=== PATIENT | male | born 1955 | race Caucasian/White ===

== ENCOUNTER 2018-03-26 14:07 | Observation (INO) | payer BC, MEDICARE ==
[2018-03-26] MEDS ORDERED: Sodium Chloride 0.9% 10 ML Syringe FLUSH PRN (14:14)
[2018-03-26] MEDS ORDERED: Sodium Chloride 0.9% 2.5 ML Syringe FLUSH PRN (14:14)
--- NOTE | 2018-03-26 14:21 | EDM.PDOC ---
ED HPI GENERAL MEDICAL PROBLEM - General Chief Complaint: General Stated Complaint: WEAK Time Seen by Provider: 03/26/18 14:13 Source of Information: Reports: Patient History Limitations: Reports: No Limitations - History of Present Illness INITIAL COMMENTS - FREE TEXT/NARRATIVE: HISTORY AND PHYSICAL: History of present illness: Patient is a 63-year-old male who presents to the emergency room with concerns of generalized weakness. He states 2 weeks ago in [facility] he did have a left hip replacement. During this time it did require 3 transfusions due to anemia. He states he was discharged to home with anemia and was told to monitor his symptoms closely. He is in the [facility] for work. During his hospitalization he did have a CT scan and a colonoscopy without any definitive reason for his anemia. He denies any fever, chills, chest pain, shortness of breath or cough. Denies any abdominal pain, nausea, vomiting, diarrhea, constipation or dysuria. There is been no blood noted in his stools. No syncope events, but states he does feel near syncopal at times "its real easy to fall asleep, I'll put it that way". Review of systems: As per history of present illness and below otherwise all systems reviewed and negative. Past medical history: As per history of present illness and as reviewed below otherwise noncontributory. Surgical history: As per history of present illness and as reviewed below otherwise noncontributory. Social history: Patient is of [employer] and wears undergarments, but agreeable to physical examination. See social history for further information. Family history: As per history of present illness and as reviewed below otherwise noncontributory. Physical exam: General: Well-developed and well-nourished 63-year-old male. Alert and oriented. Nontoxic appearing and in no acute distress. HEENT: Atraumatic, normocephalic, pupils equal and reactive bilaterally, negative for conjunctival pallor or scleral icterus, mucous membranes moist, TMs normal bilaterally, throat clear, neck supple, nontender, trachea midline. No drooling or trismus noted. No meningeal signs. No hot potato voice noted. Lungs: Clear to auscultation, breath sounds equal bilaterally, chest nontender. Heart: S1S2, regular rate and rhythm without overt murmur Abdomen: Soft, nondistended, nontender. Negative for masses or hepatosplenomegaly. Negative for costovertebral tenderness. Pelvis: Stable nontender. Genitourinary: Deferred. Rectal: This was done with a network engineer administrator at the bedside. Patient is aware and agreeable. Negative Hemoccult stool. Good rectal tone. Skin: Pale appearing, intact, warm, dry. Incisions site WNL. No lesions or rashes noted. Extremities: Atraumatic, moves all per self. Incision of the right hip appears free of infection, well approximated, no warmth or tenderness. He is negative for cords or calf pain. Neurovascular unremarkable. Neuro: Awake, alert, oriented. Cranial nerves II through XII unremarkable. Cerebellum unremarkable. Motor and sensory unremarkable throughout. Exam nonfocal. Notes: Hemoglobin is low at 8.1. Patient does not recall what his hemoglobin was when he was discharged at [facility]. He is symptomatic and agreeable to staying overnight for observation. Dr. Yeh was consulted on this case and is agreeable to accepting this patient. 1555: Dr Javed here to evaluate patient. Diagnostics: CBC, CMP, UA, influenza, troponin, chest x-ray, EKG, Hemoccult stool, type and screen, crossmatch 2 units Therapeutics: IV fluid Impression: Symptomatic Anemia Plan: Observation admission with telemetry to [facility] Definitive disposition and diagnosis as appropriate pending reevaluation and review of above. Duration: Week(s): generalized Pain Score (Numeric/FACES): 6 - Related Data Allergies Allergy/AdvReac Type Severity Reaction Status Date / Time No Known Allergies Allergy Verified 03/26/18 14:25 Home Meds: Home Meds Diclofenac Sodium [Diclofenac Sodium ER] 100 mg PO BID 03/26/18 [History] Metoprolol Succinate [Toprol XL 50mg] 50 mg PO BID 03/26/18 [History] Pantoprazole [ProTONIX] 40 mg PO DAILY PRN 03/26/18 [History] oxyCODONE HCl/Acetaminophen [Oxycodone-Acetaminophen 5-325] 2 tab PO BID [History] ED ROS GENERAL - Review of Systems Review Of Systems: ROS reveals no pertinent complaints other than HPI. ED EXAM, GENERAL - Physical Exam Exam: See Below (See dictation) Course - Vital Signs Last Recorded V/S: Last Vital Signs Temp 97.6 F 03/26/18 14:21 Pulse 60 03/26/18 14:21 Resp 20 03/26/18 14:21 BP 133/82 03/26/18 14:21 Pulse Ox 100 03/26/18 14:21 - Orders/Labs/Meds Orders: Active Orders 24 hr Category Date Time Status Admission Status [Patient Status] [ADT] Stat ADT 03/26/18 15:49 Ordered Cardiac Monitoring [RC] . DIRECTED Care 03/26/18 15:49 Ordered EKG Documentation Completion [RC] STAT Care 03/26/18 14:14 Active Orthostatic Vital Signs [RC] ASDIRECTED Care 03/26/18 14:14 Active Verify Patient Consent Obtain [RC] ASDIRECTED Care 03/26/18 15:53 Ordered RED BLOOD CELLS LP [BBK] Stat Lab 03/26/18 15:53 Ordered TYPE AND SCREEN [BBK] Stat Lab 03/26/18 14:41 Received UA W/MICROSCOPIC [URIN] Stat Lab 03/26/18 14:33 Ordered Sodium Chloride 0.9% [Saline Flush] Med 03/26/18 14:14 Active 10 ml FLUSH ASDIRECTED PRN Sodium Chloride 0.9% [Saline Flush] Med 03/26/18 14:14 Active 2.5 ml FLUSH ASDIRECTED PRN Saline Lock Insert [OM.PC] Stat Oth 03/26/18 14:14 Ordered Transfuse Red Blood Cells [COMM] Stat Oth 03/26/18 15:53 Ordered Medication Orders Sodium Chloride (Saline Flush) 10 ml FLUSH ASDIRECTED PRN PRN Reason: Keep Vein Open Sodium Chloride (Saline Flush) 2.5 ml FLUSH ASDIRECTED PRN PRN Reason: Keep Vein Open Labs: Laboratory Tests 03/26/18 03/26/18 03/26/18 Range/Units 14:48 14:48 14:48 WBC 7.97 (4.0-11.0) K/uL RBC 3.30 L (4.50-5.90) M/uL Hgb 8.1 L (13.0-17.0) g/dL Hct 26.2 L (38.0-50.0) % MCV 79.4 L (80.0-98.0) fL MCH 24.5 L (27.0-32.0) pg MCHC 30.9 L (31.0-37.0) g/dL RDW Std Deviation 55.0 (28.0-62.0) fl RDW Coeff of Jose Martin 19 H (11.0-15.0) % Plt Count 538 H (150-400) K/uL MPV 9.00 (7.40-12.00) fL Neut % (Auto) 68.9 (48.0-80.0) % Lymph % (Auto) 21.0 (16.0-40.0) % [place] % (Auto) 7.3 (0.0-15.0) % Eos % (Auto) 2.5 (0.0-7.0) % Baso % (Auto) 0.3 (0.0-1.5) % Neut # (Auto) 5.5 (1.4-5.7) K/uL Lymph # (Auto) 1.7 (0.6-2.4) K/uL [place] # (Auto) 0.6 (0.0-0.8) K/uL Eos # (Auto) 0.2 (0.0-0.7) K/uL Baso # (Auto) 0.0 (0.0-0.1) K/uL Nucleated RBC % 0.0 /100WBC Nucleated RBCs # 0 K/uL INR 1.12 Sodium 140 (136-148) mmol/L Potassium 4.4 (3.5-5.1) mmol/L Chloride 107 (98-107) mmol/L Carbon Dioxide 22.7 (21.0-32.0) mmol/L BUN 16 (7.0-18.0) mg/dL Creatinine 1.3 (0.8-1.3) mg/dL Est Cr Clr Drug Dosing 65.87 mL/min Estimated GFR (MDRD) 55.4 ml/min Glucose 100 (74-106) mg/dL Calcium 9.9 (8.5-10.1) mg/dL Total Bilirubin 0.6 (0.2-1.0) mg/dL AST 15 (15-37) IU/L ALT 25 (14-63) IU/L Alkaline Phosphatase 137 H (46-116) U/L Troponin I < 0.050 (0.000-0.056) ng/mL Total Protein 7.3 (6.4-8.2) g/dL Albumin 3.2 L (3.4-5.0) g/dL Globulin 4.1 H (2.6-4.0) g/dL Albumin/Globulin Ratio 0.8 L (0.9-1.6) Meds: Medications Generic Name Dose Route Start Last Admin Trade Name Freq PRN Reason Stop Dose Admin Sodium Chloride 10 ml 03/26/18 14:14 Saline Flush FLUSH ASDIRECTED PRN Keep Vein Open Sodium Chloride 2.5 ml 03/26/18 14:14 Saline Flush FLUSH ASDIRECTED PRN Keep Vein Open Discontinued Medications Generic Name Dose Route Start Last Admin Trade Name Freq PRN Reason Stop Dose Admin Sodium Chloride 1,000 mls @ 999 mls/hr 03/26/18 14:26 03/26/18 14:53 Normal Saline IV 03/26/18 15:26 999 mls/hr STAT ONE Administration Departure - Departure Time of Disposition: 15:59 Disposition: Refer to Observation Clinical Impression: Anemia Qualifiers: Anemia type: unspecified type Qualified Code(s): D64.9 - Anemia, unspecified - Discharge Information Referrals: Michoacano Croft MD [Primary Care Provider] - Forms: ED Department Discharge - My Orders Last 24 Hours: My Active Orders 03/26/18 14:14 EKG Documentation Completion [RC] STAT Orthostatic Vital Signs [RC] ASDIRECTED Sodium Chloride 0.9% [Saline Flush] 10 ml FLUSH ASDIRECTED PRN Sodium Chloride 0.9% [Saline Flush] 2.5 ml FLUSH ASDIRECTED PRN Saline Lock Insert [OM.PC] Stat 03/26/18 14:33 UA W/MICROSCOPIC [URIN] Stat 03/26/18 14:41 TYPE AND SCREEN [BBK] Stat 03/26/18 15:49 Admission Status [Patient Status] [ADT] Stat Cardiac Monitoring [RC] . DIRECTED 03/26/18 15:53 Verify Patient Consent Obtain [RC] ASDIRECTED RED BLOOD CELLS LP [BBK] Stat Transfuse Red Blood Cells [COMM] Stat - Assessment/Plan Last 24 Hours: My Active Orders 03/26/18 14:14 EKG Documentation Completion [RC] STAT Orthostatic Vital Signs [RC] ASDIRECTED Sodium Chloride 0.9% [Saline Flush] 10 ml FLUSH ASDIRECTED PRN Sodium Chloride 0.9% [Saline Flush] 2.5 ml FLUSH ASDIRECTED PRN Saline Lock Insert [OM.PC] Stat 03/26/18 14:33 UA W/MICROSCOPIC [URIN] Stat 03/26/18 14:41 TYPE AND SCREEN [BBK] Stat 03/26/18 15:49 Admission Status [Patient Status] [ADT] Stat Cardiac Monitoring [RC] . DIRECTED 03/26/18 15:53 Verify Patient Consent Obtain [RC] ASDIRECTED RED BLOOD CELLS LP [BBK] Stat Transfuse Red Blood Cells [COMM] Stat
[2018-03-26] MEDS ORDERED: Sodium Chloride 0.9% 1,000 ML IV ONE (14:26)
[2018-03-26 15:26] LABS: CHLORIDE,CL 107 mmol/L (98-107); SODIUM,NA 140 mmol/L (136-148)
--- NOTE | 2018-03-26 15:35 | CR ---
EXAMINATION: Portable chest radiograph. HISTORY: Weakness. FINDINGS: The trachea is midline. The cardiomediastinal silhouette is within normal limits. No pulmonary infiltrates, effusions or pneumothorax. Osseous structures appear unremarkable. Median sternotomy wires are noted. IMPRESSION: No acute cardiopulmonary process.
--- NOTE | 2018-03-26 16:23 | PCM.HP ---
H&P History of Present Illness - General Date of Service: 03/26/18 Admit Problem/Dx: Admission Diagnosis/Problem Admission Diagnosis/Problem Anemia Source of Information: Patient History Limitations: Reports: No Limitations - History of Present Illness Initial Comments - Free Text/Narative: 63M hx of total right hip replacement 2 weeks ago at outside facility in [place], HTN, GERD, CAD, BPH that presented to the ER with a chief complaint of generalized weakness and feeling cold. 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 During this past surgery, patient tells me that he was found to be mildly anemic prior to the surgery, during, and post-op resulting in a hospital stay of 4-5 days and multiple transfusions. He says that they were unable to locate a source of bleeding during his hospital stay. He has stopped taking diclofenac for the past 3 weeks, but is currently on full dose aspirin since his surgery. He denies any shortness of breath, chest pain, bloody or black tarry stool. Denies nausea or vomiting. Endorses decreased appetite. generalized Pain Score (Numeric/FACES): 6 - Related Data Allergies/Adverse Reactions: Allergies Allergy/AdvReac Type Severity Reaction Status Date / Time No Known Allergies Allergy Verified 03/26/18 14:25 Home Medications: Home Meds Diclofenac Sodium [Diclofenac Sodium ER] 75 mg PO BID 03/26/18 [History] Hydrocodone/Acetaminophen [Hydrocodon-Acetaminoph 7.5-325] 1 tab PO BID [History] Metoprolol Succinate [Toprol XL 50mg] 50 mg PO BID 03/26/18 [History] Pantoprazole [ProTONIX] 40 mg PO DAILY PRN 03/26/18 [History] Past Medical History Hematologic History: Reports: Anemia - Infectious Disease History Infectious Disease History: Reports: Shingles - Past Surgical History Cardiovascular Surgical History: Reports: Coronary Artery Bypass GI Surgical History: Reports: Hernia, Abdominal Musculoskeletal Surgical History: Reports: Hip Replacement, Other (See Below) Other Musculoskeletal Surgeries/Procedures:: Left Foot Social & Family History - Family History Family Medical History: Noncontributory - Tobacco Use Smoking Status *Q: Never Smoker Second Hand Smoke Exposure: Yes - Caffeine Use Caffeine Use: Reports: None - Recreational Drug Use Recreational Drug Use: No H&P Review of Systems - Review of Systems: Review Of Systems: See Below General: Reports: Chills, Weakness HEENT: Reports: No Symptoms Pulmonary: Reports: No Symptoms Cardiovascular: Reports: No Symptoms Gastrointestinal: Reports: Decreased Appetite. Denies: Abdominal Pain, Black Stool, Bloody Stool, Constipation, Diarrhea, Difficulty Swallowing, Distension, Flatus, Hematochezia, Melena, Mucous in Stool, Nausea, Stool Incontinence, Vomiting Genitourinary: Reports: No Symptoms. Denies: Hematuria Musculoskeletal: Reports: No Symptoms Skin: Reports: No Symptoms Psychiatric: Reports: No Symptoms Neurological: Reports: No Symptoms Hematologic/Lymphatic: Reports: Anemia Immunologic: Reports: No Symptoms Exam - Exam Exam: See Below - Vital Signs Vital Signs: Last Vital Signs Temp 36.4 C 03/26/18 14:21 Pulse 60 03/26/18 14:21 Resp 20 03/26/18 14:21 BP 133/82 03/26/18 14:21 Pulse Ox 100 03/26/18 14:21 Orthostatic Blood Pressure [ 163/82 Sitting] Orthostatic Blood Pressure [ 148/69 Supine] Orthostatic Blood Pressure [ 216/88 Standing] Weight: 113.398 kg - Exam General: Alert, Oriented, 4 HEENT: PERRLA, Hearing Intact, Mucosa Moist & [place], Nares Patent, Normal Nasal Septum, Posterior Pharynx Clear, Conjunctiva Clear, EOMI, EACs Clear, TMs Clear Neck: Supple, Trachea Midline, 2 Lungs: Clear to Auscultation, Normal Respiratory Effort Cardiovascular: Regular Rate, Regular Rhythm GI/Abdominal Exam: Normal Bowel Sounds, Soft, Non-Tender, No Organomegaly, No Distention, No Abnormal Bruit, No Mass, Pelvis Stable Back Exam: Normal Inspection, Full Range of Motion, NT Extremities: Normal Inspection, Normal Range of Motion, Non-Tender, No Pedal Edema, Normal Capillary Refill Peripheral Pulses: 2+: Dorsalis Pedis (L), Dorsalis Pedis (R) Skin: Warm, Dry, Intact Neurological: Cranial Nerves Intact, Reflexes Equal Bilateral Neuro Extensive - Mental Status: Alert, Oriented x3, Normal Mood/Affect, Normal Cognition Neuro Extensive - Motor, Sensory, Reflexes: CN II-XII Intact, Normal Gait, Normal Reflexes DTR: 2+: Achilles (L), Achilles (R) Psychiatric: Alert, Normal Affect, Normal Mood - Patient Data Lab Results Last 24 hrs: Laboratory Results - last 24 hr 03/26/18 03/26/18 03/26/18 Range/Units 14:48 14:48 14:48 WBC 7.97 (4.0-11.0) K/uL RBC 3.30 L (4.50-5.90) M/uL Hgb 8.1 L (13.0-17.0) g/dL Hct 26.2 L (38.0-50.0) % MCV 79.4 L (80.0-98.0) fL MCH 24.5 L (27.0-32.0) pg MCHC 30.9 L (31.0-37.0) g/dL RDW Std Deviation 55.0 (28.0-62.0) fl RDW Coeff of Jose Martin 19 H (11.0-15.0) % Plt Count 538 H (150-400) K/uL MPV 9.00 (7.40-12.00) fL Neut % (Auto) 68.9 (48.0-80.0) % Lymph % (Auto) 21.0 (16.0-40.0) % [place] % (Auto) 7.3 (0.0-15.0) % Eos % (Auto) 2.5 (0.0-7.0) % Baso % (Auto) 0.3 (0.0-1.5) % Neut # (Auto) 5.5 (1.4-5.7) K/uL Lymph # (Auto) 1.7 (0.6-2.4) K/uL [place] # (Auto) 0.6 (0.0-0.8) K/uL Eos # (Auto) 0.2 (0.0-0.7) K/uL Baso # (Auto) 0.0 (0.0-0.1) K/uL Nucleated RBC % 0.0 /100WBC Nucleated RBCs # 0 K/uL INR 1.12 Sodium 140 (136-148) mmol/L Potassium 4.4 (3.5-5.1) mmol/L Chloride 107 (98-107) mmol/L Carbon Dioxide 22.7 (21.0-32.0) mmol/L BUN 16 (7.0-18.0) mg/dL Creatinine 1.3 (0.8-1.3) mg/dL Est Cr Clr Drug Dosing 65.87 mL/min Estimated GFR (MDRD) 55.4 ml/min Glucose 100 (74-106) mg/dL Calcium 9.9 (8.5-10.1) mg/dL Total Bilirubin 0.6 (0.2-1.0) mg/dL AST 15 (15-37) IU/L ALT 25 (14-63) IU/L Alkaline Phosphatase 137 H (46-116) U/L Troponin I < 0.050 (0.000-0.056) ng/mL Total Protein 7.3 (6.4-8.2) g/dL Albumin 3.2 L (3.4-5.0) g/dL Globulin 4.1 H (2.6-4.0) g/dL Albumin/Globulin Ratio 0.8 L (0.9-1.6) Result Diagrams: 03/26/18 14:48 03/26/18 14:48 Curtis Results Last 24 hrs: Microbiology 03/26/18 14:48 Influenza Type A Antigen Screen - Final Nasopharyngeal Swab NEGATIVE INFLUENZA A VIRUS AG Influenza Type B Antigen Screen - Final NEGATIVE INFLUENZA B VIRUS AG Problem List Initiated/Reviewed/Updated: Yes Orders Last 24hrs: Active Orders 24 hr Category Date Time Status Admission Status [Patient Status] [ADT] Stat ADT 03/26/18 15:49 Active Cardiac Monitoring [RC] . DIRECTED Care 03/26/18 15:49 Active EKG Documentation Completion [RC] STAT Care 03/26/18 14:14 Active Orthostatic Vital Signs [RC] ASDIRECTED Care 03/26/18 14:14 Active Verify Patient Consent Obtain [RC] ASDIRECTED Care 03/26/18 15:53 Active RED BLOOD CELLS LP [BBK] Stat Lab 03/26/18 14:41 Received TYPE AND SCREEN [BBK] Stat Lab 03/26/18 14:41 Received UA W/MICROSCOPIC [URIN] Stat Lab 03/26/18 14:33 Ordered Sodium Chloride 0.9% [Saline Flush] Med 03/26/18 14:14 Active 10 ml FLUSH ASDIRECTED PRN Sodium Chloride 0.9% [Saline Flush] Med 03/26/18 14:14 Active 2.5 ml FLUSH ASDIRECTED PRN Saline Lock Insert [OM.PC] Stat Ot 03/26/18 14:14 Ordered Transfuse Red Blood Cells [COMM] Stat Ot 03/26/18 15:53 Ordered Medication Orders Sodium Chloride (Saline Flush) 10 ml FLUSH ASDIRECTED PRN PRN Reason: Keep Vein Open Sodium Chloride (Saline Flush) 2.5 ml FLUSH ASDIRECTED PRN PRN Reason: Keep Vein Open Assessment/Plan Comment:: Assessment: #1. Symptomatic microcytic anemia #2. Elevated Alk phosphatase #3. Subjective chills #4. Ambulatory dysfunction secondary to recent surgery #5. History of GERD, HTN, BPH, Aortic aneurysm repair Plan: #1. Admit for observation. Vitals per floor routine. Cardiac telemetry. SCD For dvt prophylaxis #2. PRBC 2 units, recheck H/H after second unit #3. Continue home HTN meds #4. IV Protonix 40mg daily #5. PRN IV 4mg zofran q4h for nausea #6. Hemoccult #7. Obtain records from [place] #8. iron/reticulocyte count, b12
[2018-03-26] MEDS ORDERED: Ondansetron 4 MG/2 ML SDV IVPUSH PRN (16:41)
[2018-03-26] MEDS ORDERED: Acetaminophen/oxyCODONE 325-5 MG Tab PO SCH (16:45)
[2018-03-26] MEDS ORDERED: Pantoprazole 40 MG Vial ONE (17:45)
[2018-03-26] MEDS ORDERED: Acetaminophen/HYDROcodone 325-7.5 MG Tab ONE (17:45)
[2018-03-26] MEDS ORDERED: Metoprolol Succinate 50 MG Tab.ER ONE ×2 (17:47→20:17)
[2018-03-26] MEDS: Pantoprazole 40 MG Vial IV SCH (18:00)
[2018-03-26] MEDS: Metoprolol Succinate 50 MG Tab.ER PO SCH ×2 (18:00→20:36)
[2018-03-26] MEDS: Acetaminophen/HYDROcodone 325-7.5 MG Tab PO SCH ×2 (18:01→21:02)
[2018-03-27 06:26] LABS: CHLORIDE,CL 106 mmol/L (98-107); SODIUM,NA 141 mmol/L (136-148)
[2018-03-27] MEDS ORDERED: Iron Sucrose Complex 200 MG in Sodium Chloride 0.9% 100 ML IV ONE (08:38)
[2018-03-27] MEDS ORDERED: Metoprolol Succinate 50 MG Tab.ER ONE (08:45)
[2018-03-27] MEDS ORDERED: Acetaminophen/HYDROcodone 325-7.5 MG Tab ONE (08:45)
[2018-03-27] MEDS: Acetaminophen/HYDROcodone 325-7.5 MG Tab PO SCH (08:48)
[2018-03-27] MEDS: Metoprolol Succinate 50 MG Tab.ER PO SCH (08:53)
--- NOTE | 2018-03-27 09:51 | PCM.DCSUM1 ---
<Julián Javed - Last Filed: 03/27/18 17:46> Discharge Summary - Hospital Course Free Text/Narrative:: Admission date: 03/26/2018 Discharge date: 03/27/2018 Admission diagnosis: #1. Symptomatic microcytic anemia #2. Elevated Alk phosphatase #3. Subjective chills #4. Ambulatory dysfunction secondary to recent surgery #5. History of GERD, HTN, BPH, Aortic aneurysm repair Discharge diagnosis: #1. Iron deficiency anemia #2. Generalized weakness improved #3. Post-op 2 weeks for a right total hip replacement #4. History of GERD, HTN, Aortic aneurysm repair, BPH Hospital course: This is a 63M that was admitted for generalized weakness, chills w/ the history above found to have a hemoglobin of 8.1. He was admitted for observation, transfused 2 units overnight which brought his hemoglobin up to 9.4. Hemoccult was negative as per ER. The next morning, patient stated that he felt better but still felt weak. He was transfused with IV Iron sucrose, along with another unit of PRBC. Hgb at time of discharge was 10.6. He was advised that he will need to be seen by general surgery for a EGD/Colonoscopy for further work up of his anemia. He did offer that he has been taking diclofenac, excedrin for many years. He has been on full dose aspirin since his surgery which took place in [place]. He has since stopped all NSAIDs except for aspirin. He understands and agrees to the plan. - Discharge Data Discharge Date: 03/27/18 Discharge Disposition: Home, Self-Care 01 Condition: Stable - Patient Summary/Data Consults: Consultations 03/26/18 16:41 PT Evaluation and Treatment [CONS] Routine - Patient Instructions Diet: Usual Diet as Tolerated Activity: As Tolerated Other/Special Instructions: Avoid diclofenac, excedrin. Continue to take aspirin only. - Discharge Plan Home Medications: Home Meds Hydrocodone/Acetaminophen [Hydrocodon-Acetaminoph 7.5-325] 1 tab PO BID [History] Metoprolol Succinate [Toprol XL 50mg] 50 mg PO BID 03/26/18 [History] Pantoprazole [ProTONIX] 40 mg PO DAILY PRN 03/26/18 [History] Patient Handouts: Anemia Referrals: [facility] [Outside] Flip Venegas MD [Physician] - 04/08/18 10:30 am Michoacano Croft MD [Primary Care Provider] - 04/04/18 10:00 am - Discharge Summary/Plan Comment DC Time >30 min.: No - Patient Data Vitals - Most Recent: Last Vital Signs Temp 36.6 C 03/27/18 07:25 Pulse 60 03/27/18 08:53 Resp 18 03/27/18 07:25 BP 167/79 H 03/27/18 08:53 Pulse Ox 96 03/27/18 07:25 Orthostatic Blood Pressure [ 163/82 Sitting] Orthostatic Blood Pressure [ 148/69 Supine] Orthostatic Blood Pressure [ 216/88 Standing] Weight - Most Recent: 113.398 kg I&O - Last 24 hours: Intake & Output 03/26/18 03/27/18 03/27/18 22:59 06:59 14:59 Intake Total 346 1087 Output Total 1250 Balance 346 -163 Lab Results - Last 24 hrs: Laboratory Results - last 24 hr 03/26/18 03/26/18 03/26/18 Range/Units 14:41 14:48 14:48 WBC 7.97 (4.0-11.0) K/uL RBC 3.30 L (4.50-5.90) M/uL Hgb 8.1 L (13.0-17.0) g/dL Hct 26.2 L (38.0-50.0) % MCV 79.4 L (80.0-98.0) fL MCH 24.5 L (27.0-32.0) pg MCHC 30.9 L (31.0-37.0) g/dL RDW Std Deviation 55.0 (28.0-62.0) fl RDW Coeff of Jose Martin 19 H (11.0-15.0) % Plt Count 538 H (150-400) K/uL MPV 9.00 (7.40-12.00) fL Neut % (Auto) 68.9 (48.0-80.0) % Lymph % (Auto) 21.0 (16.0-40.0) % Guthrie % (Auto) 7.3 (0.0-15.0) % Eos % (Auto) 2.5 (0.0-7.0) % Baso % (Auto) 0.3 (0.0-1.5) % Neut # (Auto) 5.5 (1.4-5.7) K/uL Lymph # (Auto) 1.7 (0.6-2.4) K/uL Guthrie # (Auto) 0.6 (0.0-0.8) K/uL Eos # (Auto) 0.2 (0.0-0.7) K/uL Baso # (Auto) 0.0 (0.0-0.1) K/uL Nucleated RBC % 0.0 /100WBC Nucleated RBCs # 0 K/uL ESR (0-19) mm/hr Absolute Retic (20-80) K/uL Percent Retic (0.5-1.5) % Immature Retic Fraction % INR Sodium 140 (136-148) mmol/L Potassium 4.4 (3.5-5.1) mmol/L Chloride 107 (98-107) mmol/L Carbon Dioxide 22.7 (21.0-32.0) mmol/L BUN 16 (7.0-18.0) mg/dL Creatinine 1.3 (0.8-1.3) mg/dL Est Cr Clr Drug Dosing 65.87 mL/min Estimated GFR (MDRD) 55.4 ml/min Glucose 100 (74-106) mg/dL Calcium 9.9 (8.5-10.1) mg/dL Iron (50-175) ug/dL TIBC (250-450) ug/dL % Saturation (20-55) % Total Bilirubin 0.6 (0.2-1.0) mg/dL AST 15 (15-37) IU/L ALT 25 (14-63) IU/L Alkaline Phosphatase 137 H (46-116) U/L Troponin I < 0.050 (0.000-0.056) ng/mL C-Reactive Protein (0.00-0.90) mg/dL Total Protein 7.3 (6.4-8.2) g/dL Albumin 3.2 L (3.4-5.0) g/dL Globulin 4.1 H (2.6-4.0) g/dL Albumin/Globulin Ratio 0.8 L (0.9-1.6) Vitamin B12 (193-986) pg/mL Urine Color Urine Appearance Urine pH (5.0-8.0) Ur Specific [place] (1.001-1.035) Urine Protein (NEGATIVE) mg/dL Urine Glucose (UA) (NEGATIVE) mg/dL Urine Ketones (NEGATIVE) mg/dL Urine Occult Blood (NEGATIVE) Urine Nitrite (NEGATIVE) Urine Bilirubin (NEGATIVE) Urine Urobilinogen (<2.0) EU/dL Ur Leukocyte Esterase (NEGATIVE) Urine RBC (0-2/HPF) Urine WBC (0-5/HPF) Ur Epithelial Cells (NONE-FEW) Urine Bacteria (NEGATIVE) Blood Type A POSITIVE Antibody Screen NEGATIVE Crossmatch See Detail 03/26/18 03/26/18 03/26/18 Range/Units 14:48 14:48 14:48 WBC (4.0-11.0) K/uL RBC 3.31 L (4.50-5.90) M/uL Hgb (13.0-17.0) g/dL Hct (38.0-50.0) % MCV (80.0-98.0) fL MCH (27.0-32.0) pg MCHC (31.0-37.0) g/dL RDW Std Deviation (28.0-62.0) fl RDW Coeff of Jose Martin (11.0-15.0) % Plt Count (150-400) K/uL MPV (7.40-12.00) fL Neut % (Auto) (48.0-80.0) % Lymph % (Auto) (16.0-40.0) % Guthrie % (Auto) (0.0-15.0) % Eos % (Auto) (0.0-7.0) % Baso % (Auto) (0.0-1.5) % Neut # (Auto) (1.4-5.7) K/uL Lymph # (Auto) (0.6-2.4) K/uL G[place]rie # (Auto) (0.0-0.8) K/uL Eos # (Auto) (0.0-0.7) K/uL Baso # (Auto) (0.0-0.1) K/uL Nucleated RBC % /100WBC Nucleated RBCs # K/uL ESR (0-19) mm/hr Absolute Retic 54.90 (20-80) K/uL Percent Retic 1.7 H (0.5-1.5) % Immature Retic Fraction 21 % INR 1.12 Sodium (136-148) mmol/L Potassium (3.5-5.1) mmol/L Chloride (98-107) mmol/L Carbon Dioxide (21.0-32.0) mmol/L BUN (7.0-18.0) mg/dL Creatinine (0.8-1.3) mg/dL Est Cr Clr Drug Dosing mL/min Estimated GFR (MDRD) ml/min Glucose (74-106) mg/dL Calcium (8.5-10.1) mg/dL Iron 20 L (50-175) ug/dL TIBC 307 (250-450) ug/dL % Saturation 6.51 L (20-55) % Total Bilirubin (0.2-1.0) mg/dL AST (15-37) IU/L ALT (14-63) IU/L Alkaline Phosphatase (46-116) U/L Troponin I (0.000-0.056) ng/mL C-Reactive Protein (0.00-0.90) mg/dL Total Protein (6.4-8.2) g/dL Albumin (3.4-5.0) g/dL Globulin (2.6-4.0) g/dL Albumin/Globulin Ratio (0.9-1.6) Vitamin B12 (193-986) pg/mL Urine Color Urine Appearance Urine pH (5.0-8.0) Ur Specific [place] (1.001-1.035) Urine Protein (NEGATIVE) mg/dL Urine Glucose (UA) (NEGATIVE) mg/dL Urine Ketones (NEGATIVE) mg/dL Urine Occult Blood (NEGATIVE) Urine Nitrite (NEGATIVE) Urine Bilirubin (NEGATIVE) Urine Urobilinogen (<2.0) EU/dL Ur Leukocyte Esterase (NEGATIVE) Urine RBC (0-2/HPF) Urine WBC (0-5/HPF) Ur Epithelial Cells (NONE-FEW) Urine Bacteria (NEGATIVE) Blood Type Antibody Screen Crossmatch 03/26/18 03/26/18 03/27/18 Range/Units 14:48 21:45 00:15 WBC (4.0-11.0) K/uL RBC (4.50-5.90) M/uL Hgb 9.1 L (13.0-17.0) g/dL Hct 28.8 L (38.0-50.0) % MCV (80.0-98.0) fL MCH (27.0-32.0) pg MCHC (31.0-37.0) g/dL RDW Std Deviation (28.0-62.0) fl RDW Coeff of Jose Martin (11.0-15.0) % Plt Count (150-400) K/uL MPV (7.40-12.00) fL Neut % (Auto) (48.0-80.0) % Lymph % (Auto) (16.0-40.0) % G[place]rie % (Auto) (0.0-15.0) % Eos % (Auto) (0.0-7.0) % Baso % (Auto) (0.0-1.5) % Neut # (Auto) (1.4-5.7) K/uL Lymph # (Auto) (0.6-2.4) K/uL G[place]rie # (Auto) (0.0-0.8) K/uL Eos # (Auto) (0.0-0.7) K/uL Baso # (Auto) (0.0-0.1) K/uL Nucleated RBC % /100WBC Nucleated RBCs # K/uL ESR (0-19) mm/hr Absolute Retic (20-80) K/uL Percent Retic (0.5-1.5) % Immature Retic Fraction % INR Sodium (136-148) mmol/L Potassium (3.5-5.1) mmol/L Chloride (98-107) mmol/L Carbon Dioxide (21.0-32.0) mmol/L BUN (7.0-18.0) mg/dL Creatinine (0.8-1.3) mg/dL Est Cr Clr Drug Dosing mL/min Estimated GFR (MDRD) ml/min Glucose (74-106) mg/dL Calcium (8.5-10.1) mg/dL Iron (50-175) ug/dL TIBC (250-450) ug/dL % Saturation (20-55) % Total Bilirubin (0.2-1.0) mg/dL AST (15-37) IU/L ALT (14-63) IU/L Alkaline Phosphatase (46-116) U/L Troponin I (0.000-0.056) ng/mL C-Reactive Protein (0.00-0.90) mg/dL Total Protein (6.4-8.2) g/dL Albumin (3.4-5.0) g/dL Globulin (2.6-4.0) g/dL Albumin/Globulin Ratio (0.9-1.6) Vitamin B12 1105 H (193-986) pg/mL Urine Color YELLOW Urine Appearance CLEAR Urine pH 5.5 (5.0-8.0) Ur Specific [place] 1.010 (1.001-1.035) Urine Protein NEGATIVE (NEGATIVE) mg/dL Urine Glucose (UA) NEGATIVE (NEGATIVE) mg/dL Urine Ketones NEGATIVE (NEGATIVE) mg/dL Urine Occult Blood NEGATIVE (NEGATIVE) Urine Nitrite NEGATIVE (NEGATIVE) Urine Bilirubin NEGATIVE (NEGATIVE) Urine Urobilinogen 0.2 (<2.0) EU/dL Ur Leukocyte Esterase NEGATIVE (NEGATIVE) Urine RBC 0-1 (0-2/HPF) Urine WBC 0-2 (0-5/HPF) Ur Epithelial Cells RARE (NONE-FEW) Urine Bacteria RARE (NEGATIVE) Blood Type Antibody Screen Crossmatch 03/27/18 03/27/18 03/27/18 Range/Units 05:45 05:45 05:45 WBC 8.11 (4.0-11.0) K/uL RBC 3.79 L (4.50-5.90) M/uL Hgb 9.4 L (13.0-17.0) g/dL Hct 30.0 L (38.0-50.0) % MCV 79.2 L (80.0-98.0) fL MCH 24.8 L (27.0-32.0) pg MCHC 31.3 (31.0-37.0) g/dL RDW Std Deviation 50.5 (28.0-62.0) fl RDW Coeff of Jose Martin 18 H (11.0-15.0) % Plt Count 504 H (150-400) K/uL MPV 9.20 (7.40-12.00) fL Neut % (Auto) 64.3 (48.0-80.0) % Lymph % (Auto) 24.2 (16.0-40.0) % Guthrie % (Auto) 8.3 (0.0-15.0) % Eos % (Auto) 2.8 (0.0-7.0) % Baso % (Auto) 0.4 (0.0-1.5) % Neut # (Auto) 5.2 (1.4-5.7) K/uL Lymph # (Auto) 2.0 (0.6-2.4) K/uL [place]rie # (Auto) 0.7 (0.0-0.8) K/uL Eos # (Auto) 0.2 (0.0-0.7) K/uL Baso # (Auto) 0.0 (0.0-0.1) K/uL Nucleated RBC % 0.0 /100WBC Nucleated RBCs # 0 K/uL ESR 34 H (0-19) mm/hr Absolute Retic (20-80) K/uL Percent Retic (0.5-1.5) % Immature Retic Fraction % INR Sodium 141 (136-148) mmol/L Potassium 4.2 (3.5-5.1) mmol/L Chloride 106 (98-107) mmol/L Carbon Dioxide 25.9 (21.0-32.0) mmol/L BUN 13 (7.0-18.0) mg/dL Creatinine 1.2 (0.8-1.3) mg/dL Est Cr Clr Drug Dosing 71.35 mL/min Estimated GFR (MDRD) > 60.0 ml/min Glucose 104 (74-106) mg/dL Calcium 9.3 (8.5-10.1) mg/dL Iron (50-175) ug/dL TIBC (250-450) ug/dL % Saturation (20-55) % Total Bilirubin 2.1 H (0.2-1.0) mg/dL AST 11 L (15-37) IU/L ALT 21 (14-63) IU/L Alkaline Phosphatase 124 H (46-116) U/L Troponin I (0.000-0.056) ng/mL C-Reactive Protein (0.00-0.90) mg/dL Total Protein 6.5 (6.4-8.2) g/dL Albumin 2.8 L (3.4-5.0) g/dL Globulin 3.7 (2.6-4.0) g/dL Albumin/Globulin Ratio 0.8 L (0.9-1.6) Vitamin B12 (193-986) pg/mL Urine Color Urine Appearance Urine pH (5.0-8.0) Ur Specific [place] (1.001-1.035) Urine Protein (NEGATIVE) mg/dL Urine Glucose (UA) (NEGATIVE) mg/dL Urine Ketones (NEGATIVE) mg/dL Urine Occult Blood (NEGATIVE) Urine Nitrite (NEGATIVE) Urine Bilirubin (NEGATIVE) Urine Urobilinogen (<2.0) EU/dL Ur Leukocyte Esterase (NEGATIVE) Urine RBC (0-2/HPF) Urine WBC (0-5/HPF) Ur Epithelial Cells (NONE-FEW) Urine Bacteria (NEGATIVE) Blood Type Antibody Screen Crossmatch 03/27/18 Range/Units 05:45 WBC (4.0-11.0) K/uL RBC (4.50-5.90) M/uL Hgb (13.0-17.0) g/dL Hct (38.0-50.0) % MCV (80.0-98.0) fL MCH (27.0-32.0) pg MCHC (31.0-37.0) g/dL RDW Std Deviation (28.0-62.0) fl RDW Coeff of Jose Martin (11.0-15.0) % Plt Count (150-400) K/uL MPV (7.40-12.00) fL Neut % (Auto) (48.0-80.0) % Lymph % (Auto) (16.0-40.0) % [place] % (Auto) (0.0-15.0) % Eos % (Auto) (0.0-7.0) % Baso % (Auto) (0.0-1.5) % Neut # (Auto) (1.4-5.7) K/uL Lymph # (Auto) (0.6-2.4) K/uL [place] # (Auto) (0.0-0.8) K/uL Eos # (Auto) (0.0-0.7) K/uL Baso # (Auto) (0.0-0.1) K/uL Nucleated RBC % /100WBC Nucleated RBCs # K/uL ESR (0-19) mm/hr Absolute Retic (20-80) K/uL Percent Retic (0.5-1.5) % Immature Retic Fraction % INR Sodium (136-148) mmol/L Potassium (3.5-5.1) mmol/L Chloride (98-107) mmol/L Carbon Dioxide (21.0-32.0) mmol/L BUN (7.0-18.0) mg/dL Creatinine (0.8-1.3) mg/dL Est Cr Clr Drug Dosing mL/min Estimated GFR (MDRD) ml/min Glucose (74-106) mg/dL Calcium (8.5-10.1) mg/dL Iron (50-175) ug/dL TIBC (250-450) ug/dL % Saturation (20-55) % Total Bilirubin (0.2-1.0) mg/dL AST (15-37) IU/L ALT (14-63) IU/L Alkaline Phosphatase (46-116) U/L Troponin I (0.000-0.056) ng/mL C-Reactive Protein 1.60 H (0.00-0.90) mg/dL Total Protein (6.4-8.2) g/dL Albumin (3.4-5.0) g/dL Globulin (2.6-4.0) g/dL Albumin/Globulin Ratio (0.9-1.6) Vitamin B12 (193-986) pg/mL Urine Color Urine Appearance Urine pH (5.0-8.0) Ur Specific [place] (1.001-1.035) Urine Protein (NEGATIVE) mg/dL Urine Glucose (UA) (NEGATIVE) mg/dL Urine Ketones (NEGATIVE) mg/dL Urine Occult Blood (NEGATIVE) Urine Nitrite (NEGATIVE) Urine Bilirubin (NEGATIVE) Urine Urobilinogen (<2.0) EU/dL Ur Leukocyte Esterase (NEGATIVE) Urine RBC (0-2/HPF) Urine WBC (0-5/HPF) Ur Epithelial Cells (NONE-FEW) Urine Bacteria (NEGATIVE) Blood Type Antibody Screen Crossmatch WILLOW Results - Last 24 hrs: Microbiology 03/26/18 14:48 Influenza Type A Antigen Screen - Final Nasopharyngeal Swab NEGATIVE INFLUENZA A VIRUS AG Influenza Type B Antigen Screen - Final NEGATIVE INFLUENZA B VIRUS AG Med Orders - Current: Current Medications Hydrocodone Bitart/Acetaminophen ([place] 325-7.5 Mg) 1 tab PO BID ALEKSANDR Last Admin: 03/27/18 08:48 Dose: 1 tab Metoprolol Succinate (Toprol Xl) 50 mg PO BID [facility] Last Admin: 03/27/18 08:53 Dose: 50 mg Ondansetron HCl (Zofran) 4 mg IVPUSH Q4H PRN PRN Reason: Nausea Pantoprazole Sodium (Protonix Iv) 40 mg IV Q24H [facility] Last Admin: 03/26/18 18:00 Dose: 40 mg Sodium Chloride (Saline Flush) 10 ml FLUSH ASDIRECTED PRN PRN Reason: Keep Vein Open Sodium Chloride (Saline Flush) 2.5 ml FLUSH ASDIRECTED PRN PRN Reason: Keep Vein Open Discontinued Medications Hydrocodone Bitart/Acetaminophen ([place] 325-7.5 Mg) Confirm Administered Dose 1 tab .ROUTE .STK-MED ONE Stop: 03/26/18 17:46 Last Admin: 03/27/18 05:25 Dose: Not Given Hydrocodone Bitart/Acetaminophen ([place] 325-7.5 Mg) Confirm Administered Dose 1 tab .ROUTE .STK-MED ONE Stop: 03/27/18 08:46 Last Admin: 03/27/18 08:51 Dose: Not Given Sodium Chloride (Normal Saline) 1,000 mls @ 999 mls/hr IV STAT ONE Stop: 03/26/18 15:26 Last Admin: 03/26/18 14:53 Dose: 999 mls/hr Iron Sucrose 200 mg/ Sodium (Chloride) 110 mls @ 400 mls/hr IV ONETIME ONE Stop: 03/27/18 08:53 Last Admin: 03/27/18 09:19 Dose: 400 mls/hr Metoprolol Succinate (Toprol Xl) Confirm Administered Dose 50 mg .ROUTE .STK- MED ONE Stop: 03/26/18 20:18 Last Admin: 03/26/18 21:02 Dose: Not Given Metoprolol Succinate (Toprol Xl) Confirm Administered Dose 50 mg .ROUTE .STK- MED ONE Stop: 03/26/18 17:48 Last Admin: 03/27/18 05:25 Dose: Not Given Metoprolol Succinate (Toprol Xl) Confirm Administered Dose 50 mg .ROUTE .STK- MED ONE Stop: 03/27/18 08:46 Pantoprazole Sodium (Protonix Iv) Confirm Administered Dose 40 mg .ROUTE .STK -MED ONE Stop: 03/26/18 17:46 Last Admin: 03/27/18 05:25 Dose: Not Given <Wero Rodriguez - Last Filed: 03/28/18 10:18> Discharge Summary - Hospital Course Free Text/Narrative:: I have examined the patient independently of medical research scientist. I have discussed the case with him. I agree with the assessment and plan of care for this patient as outlined by him. Please see orders. Patient has been recommended to follow with PCP for possible EGD for anemia. - Patient Summary/Data Consults: Consultations 03/26/18 16:41 PT Evaluation and Treatment [CONS] Routine - Patient Data Vitals - Most Recent: Last Vital Signs Temp 36.1 C 03/27/18 15:57 Pulse 60 03/27/18 15:57 Resp 20 03/27/18 15:57 BP 151/75 H 03/27/18 15:57 Pulse Ox 95 03/27/18 15:57 Orthostatic Blood Pressure [ 163/82 Sitting] Orthostatic Blood Pressure [ 148/69 Supine] Orthostatic Blood Pressure [ 216/88 Standing] I&O - Last 24 hours: Intake & Output 03/27/18 03/28/18 03/28/18 22:59 06:59 14:59 Intake Total 1078 Output Total 1860 Balance -782 Lab Results - Last 24 hrs: Laboratory Results - last 24 hr 03/26/18 03/27/18 Range/Units 14:41 16:17 Hgb 10.6 L (13.0-17.0) g/dL Hct 32.9 L (38.0-50.0) % Blood Type A POSITIVE Antibody Screen NEGATIVE Crossmatch See Detail Med Orders - Current: Current Medications Discontinued Medications Hydrocodone Bitart/Acetaminophen ([place] 325-7.5 Mg) 1 tab PO BID ALEKSANDR Last Admin: 03/27/18 08:48 Dose: 1 tab Hydrocodone Bitart/Acetaminophen ([place] 325-7.5 Mg) Confirm Administered Dose 1 tab .ROUTE .STK-MED ONE Stop: 03/26/18 17:46 Last Admin: 03/27/18 05:25 Dose: Not Given Hydrocodone Bitart/Acetaminophen ([place] 325-7.5 Mg) Confirm Administered Dose 1 tab .ROUTE .STK-MED ONE Stop: 03/27/18 08:46 Last Admin: 03/27/18 08:51 Dose: Not Given Sodium Chloride (Normal Saline) 1,000 mls @ 999 mls/hr IV STAT ONE Stop: 03/26/18 15:26 Last Admin: 03/26/18 14:53 Dose: 999 mls/hr Iron Sucrose 200 mg/ Sodium (Chloride) 110 mls @ 400 mls/hr IV ONETIME ONE Stop: 03/27/18 08:53 Last Admin: 03/27/18 09:19 Dose: 400 mls/hr Metoprolol Succinate (Toprol Xl) 50 mg PO BID [facility] Last Admin: 03/27/18 08:53 Dose: 50 mg Metoprolol Succinate (Toprol Xl) Confirm Administered Dose 50 mg .ROUTE .STK- MED ONE Stop: 03/26/18 20:18 Last Admin: 03/26/18 21:02 Dose: Not Given Metoprolol Succinate (Toprol Xl) Confirm Administered Dose 50 mg .ROUTE .STK- MED ONE Stop: 03/26/18 17:48 Last Admin: 03/27/18 05:25 Dose: Not Given Metoprolol Succinate (Toprol Xl) Confirm Administered Dose 50 mg .ROUTE .STK- MED ONE Stop: 03/27/18 08:46 Last Admin: 03/27/18 12:46 Dose: Not Given Ondansetron HCl (Zofran) 4 mg IVPUSH Q4H PRN PRN Reason: Nausea Pantoprazole Sodium (Protonix Iv) 40 mg IV Q24H [facility] Last Admin: 03/27/18 17:55 Dose: Not Given Pantoprazole Sodium (Protonix Iv) Confirm Administered Dose 40 mg .ROUTE .STK -MED ONE Stop: 03/26/18 17:46 Last Admin: 03/27/18 05:25 Dose: Not Given Sodium Chloride (Saline Flush) 10 ml FLUSH ASDIRECTED PRN PRN Reason: Keep Vein Open Sodium Chloride (Saline Flush) 2.5 ml FLUSH ASDIRECTED PRN PRN Reason: Keep Vein Open
[2018-03-27] MEDS: Pantoprazole 40 MG Vial IV SCH (17:55)
== END 2018-03-27 17:45 | disposition home or self-care (01) ==
LOC: MW.ED 14:07 → MW.MS 15:49
PROVIDERS: ADMIT Internal Medicine; ATTEND Internal Medicine
DX: D50.9 Iron deficiency anemia, unspecified (principal); R53.1 Weakness; I10 Essential (primary) hypertension; K21.9 Gastro-esophageal reflux disease without esophagitis; I25.10 Atherosclerotic heart disease of native coronary artery without angina pectoris; N40.0 Benign prostatic hyperplasia without lower urinary tract symptoms; R74.8 Abnormal levels of other serum enzymes; Z96.641 Presence of right artificial hip joint; Z98.890 Other specified postprocedural states; Z79.899 Other long term (current) drug therapy
CPT/HCPCS: 36415; 36430; 71045; 80053; 81001; 82607; 83550; 84484; 85014; 85018; 85025; 85045; 85610; 85652; 86140; 86850; 86900; 86901; 86920; 86921; 86922; 87804; 93005; 96361; 96374; 96375; 99285; A9270; C9113; G0378; J1756; J7030; J7040; P9016; 96360

== ENCOUNTER 2018-04-18 09:02 | Day surgery (SDC) | payer MEDICARE ==
[~2018-04-18 09:02] MED LIST: Lactated Ringers 1,000 ML IV SCH
--- NOTE | 2018-04-18 09:58 | PCM.PREANE ---
Preanesthetic Assessment - Anesthesia/Transfusion/Family Hx Anesthesia History: Prior Anesthesia Without Reaction Family History of Anesthesia Reaction: No Transfusion History: Prior Transfusion Without Reaction Intubation History: Unknown - Review of Systems General: No Symptoms Pulmonary: No Symptoms Cardiovascular: No Symptoms Gastrointestinal: No Symptoms, Other (persistant anemia despite blood transfusion) Neurological: No Symptoms Other: Reports: None - Physical Assessment O2 Sat by Pulse Oximetry: 97 Respiratory Rate: 16 Vital Signs: Last Vital Signs Temp 36.4 C 04/18/18 09:35 Pulse 57 L 04/18/18 09:35 Resp 16 04/18/18 09:35 BP 151/84 H 04/18/18 09:35 Pulse Ox 97 04/18/18 09:35 Height: 1.88 m Weight: 104.78 kg ASA Class: 3 Mental Status: Alert & Oriented x3 Airway Class: Mallampati = 2 Dentition: Reports: Normal Dentition Thyro-Mental Finger Breadths: 3 Mouth Opening Finger Breadths: 3 ROM/Head Extension: Full Lungs: Clear to Auscultation, Normal Respiratory Effort Cardiovascular: Regular Rate, Regular Rhythm - Allergies Allergies/Adverse Reactions: Allergies Allergy/AdvReac Type Severity Reaction Status Date / Time No Known Allergies Allergy Verified 04/15/18 09:35 - Blood Blood Available: No - Anesthesia Plan Pre-Op Medication Ordered: None - Acknowledgements Anesthesia Type Planned: MAC Pt an Appropriate Candidate for the Planned Anesthesia: Yes Alternatives and Risks of Anesthesia Discussed w Pt/Guardian: Yes Pt/Guardian Understands and Agrees with Anesthesia Plan: Yes PreAnesthesia Questionnaire Cardiovascular History: Reports: Aneurysm, Blood Clots/VTE/DVT, Hypertension Other Cardiovascular History: hx of blood clot behind knee-left leg Respiratory History: Reports: Sleep Apnea Other Respiratory History: dose not use CPAP Gastrointestinal History: Reports: GERD, Other (See Below) (h/o esophageal ulcers '98) Genitourinary History: Reports: BPH Musculoskeletal History: Reports: Arthritis Neurological History: Reports: CVA Other Neuro History: 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 Hematologic History: Reports: Anemia (source unknown, recently received 4 units PRBC), Blood Transfusion(s) - Infectious Disease History Infectious Disease History: Reports: Shingles - Past Surgical History Head Surgeries/Procedures: Reports: None HEENT Surgical History: Reports: Tonsillectomy Cardiovascular Surgical History: Reports: Coronary Artery Stent (umbrella stent placement) Other Cardiovascular Surgeries/Procedures: thoracic aortic aneurysm repair with repair of aortic valve GI Surgical History: Reports: Colonoscopy (x3), EGD, Hernia, Abdominal Musculoskeletal Surgical History: Reports: Arthroscopic Knee, Hip Replacement, Other (See Below) Other Musculoskeletal Surgeries/Procedures:: Left Foot with hardware, recent rt hip replacement (03/12/2018), left knee surgery - SUBSTANCE USE Smoking Status *Q: Never Smoker Recreational Drug Use History: No - HOME MEDS Home Medications: Home Meds Hydrocodone/Acetaminophen [Hydrocodon-Acetaminoph 7.5-325] 1 tab PO BID PRN [History] Metoprolol Succinate [Toprol XL 50mg] 50 mg PO BID 03/26/18 [History] Pantoprazole [ProTONIX] 40 mg PO DAILY PRN 03/26/18 [History] Organic Nutrition Shake 1 dose PO DAILY 04/15/18 [History] - CURRENT (IN HOUSE) MEDS Current Meds: Current Medications Lactated Ringer's (Ringers, Lactated) 1,000 mls @ 125 mls/hr IV [facility]ED [facility] Last Admin: 04/18/18 09:40 Dose: 125 mls/hr
[2018-04-18] MEDS ORDERED: Midazolam 1 MG/ML 2 ML SDV ONE (11:33)
[2018-04-18] MEDS ORDERED: fentaNYL 100 MCG/2 ML SDV ONE (11:34)
[2018-04-18] MEDS ORDERED: Lidocaine 2% 5 ML SDV ONE (11:35)
[2018-04-18] MEDS ORDERED: Propofol 200 MG/20 ML SDV ONE (11:36)
[2018-04-18] MEDS ORDERED: cefOXitin 1 GM Vial ONE (11:54)
[2018-04-18] MEDS ORDERED: Glycopyrrolate 0.2 MG/ML SDV ONE ×2 (12:03)
--- NOTE | 2018-04-18 12:39 | PCM.OPNOTE ---
- General Post-Op/Procedure Note Date of Surgery/Procedure: 04/18/18 Operative Procedure(s): EGD w/ gastric & esophageal biopsies. Colonoscopy. Pre Op Diagnosis: Anemia Post-Op Diagnosis: Gastritis w/ superficial ulcerations. Esophagitis w/ superficial ulcerations. No evidence of colonic neoplasia. Anesthesia Technique: MAC (ASA III) Primary Surgeon: Flip Venegas Condition: Good Free Text/Narrative:: DICTATION [id number] CPT CODE [id number]
[2018-04-18] MEDS ORDERED: Lactated Ringers 1,000 ML IV SCH (12:45)
--- NOTE | 2018-04-18 12:49 | OR ---
SURGEON: Flip Venegas M.D. DATE OF PROCEDURE: 04/18/2018 OPERATION PERFORMED: Colonoscopy. ANESTHESIA: MAC. ASA CLASSIFICATION: III. PREOPERATIVE DIAGNOSIS: New onset anemia with persistent weakness and lack of energy. POSTOPERATIVE DIAGNOSIS: No evidence of colonic neoplasia. DESCRIPTION OF PROCEDURE: The patient was taken to the endoscopy room and kept on the endoscopy table in the left lateral decubitus position. The colonoscope was inserted into the rectum and advanced with minimal difficulty to the cecum where the colonoscope was retroflexed to visualize the ascending colon from below. The colonoscope was then straightened and slowly withdrawn. Cecum, ascending colon, hepatic flexure, transverse colon, splenic flexure, descending colon, sigmoid colon, and rectum were very well visualized. No tumors, polyps, diverticula, or angiodysplastic changes were noted anywhere in the lower gastrointestinal tract. Once the colonoscope was withdrawn to the rectum, it was retroflexed to visualize the anal orifice from above. Again, no tumors or polyps were seen and there were no acute hemorrhoidal changes. The colonoscope was then straightened, the rectum aspirated, and the colonoscope removed. The patient tolerated the procedure well and was taken to recovery room in stable condition. RUBINA ELIZONDO /[id number]
--- NOTE | 2018-04-18 12:54 | OR ---
SURGEON: Flip Venegas M.D. DATE OF PROCEDURE: 04/18/2018 OPERATION PERFORMED: Esophagogastroduodenoscopy with biopsy. ANESTHESIA: MAC. ASA CLASSIFICATION: III. PREOPERATIVE DIAGNOSES: New onset anemia with persistent weakness, decreased energy level. POSTOPERATIVE DIAGNOSES: Gastritis with superficial ulcerations and esophagitis with superficial ulcerations. DESCRIPTION OF PROCEDURE: The patient was taken to the endoscopy room and positioned on the endoscopy table in the left lateral decubitus position. Time-out was called for appropriate identification of the patient and procedure. Monitored anesthesia care was provided. The bite block was placed between the patient's teeth. The gastroscope was inserted through the bite block into the oropharynx and advanced without difficulty through the esophagus and stomach into the duodenum where examination was carried out in a retrograde fashion. The duodenum shows no acute inflammatory changes or ulcerations. No blood was noted in the duodenum. Stomach does show [id number] gastritis with what appears to be superficial ulcerations. Antral biopsies were obtained to look for the presence of Helicobacter pylori. The gastroscope was retroflexed to visualize the proximal stomach. No tumors, polyps, or ulcerations were noted. The gastroscope was straightened and slowly withdrawn. The GE junction was well defined and did not show any acute inflammatory changes. However, proximal to this in the esophagus, the patient does have some superficial ulcerations, separate biopsies of the esophagus were obtained. The mid and proximal esophagus showed no ulcerations or other lesions. The vocal cords were briefly visualized as the scope was withdrawn and noted to move symmetrically. The gastroscope was then removed with the patient having tolerated this portion of the procedure well. Following colonoscopy, he was taken to recovery room in stable condition. RUBINA ELIZONDO /[id number]
== END 2018-04-18 13:13 | disposition home or self-care (01) ==
LOC: MW.SDS 09:02
PROVIDERS: ATTEND Surgery
DX: D64.9 Anemia, unspecified (principal); K29.50 Unspecified chronic gastritis without bleeding; K20.9 Esophagitis, unspecified; K25.9 Gastric ulcer, unspecified as acute or chronic, without hemorrhage or perforation; G47.30 Sleep apnea, unspecified; F17.210 Nicotine dependence, cigarettes, uncomplicated; Z79.899 Other long term (current) drug therapy; Z95.5 Presence of coronary angioplasty implant and graft
CPT/HCPCS: 43239; 45378; J0694; J2001; J2250; J2704; J3010; J3490; J7120

== ENCOUNTER 2018-10-17 20:48 | Observation (INO) | payer MEDICARE, BC ==
[2018-10-17] MEDS ORDERED: Sodium Chloride 0.9% 10 ML Syringe FLUSH PRN (21:39)
[2018-10-17] MEDS ORDERED: Sodium Chloride 0.9% 2.5 ML Syringe FLUSH PRN (21:39)
[2018-10-17] MEDS ORDERED: Ondansetron 4 MG/2 ML SDV IVPUSH ONE (21:41)
[2018-10-17] MEDS ORDERED: Ketorolac 30 MG/ML SDV IVPUSH ONE (21:41)
[2018-10-17] MEDS ORDERED: Acetaminophen 500 MG Tab PO ONE (21:41)
--- NOTE | 2018-10-17 21:41 | EDM.PDOC ---
ED HPI GENERAL MEDICAL PROBLEM - General Chief Complaint: General Stated Complaint: CHILLS/FEVER/PAIN Time Seen by Provider: 10/17/18 21:26 - History of Present Illness INITIAL COMMENTS - FREE TEXT/NARRATIVE: HISTORY AND PHYSICAL: History of present illness: The patient is a 63-year-old male with a history of hypertension gastritis/ esophagitis and who had a left hip surgery done 3-1/2 weeks ago in [place] and now presents with a one-week history of increased hip pain and a stall in his personal physical therapy and now has a fever that started today which is subjective associate with chills. Patient says he has had nausea, which mostly occurs when he rests his hands and arms on his abdomen, and only one episode of dry heaves but no overt vomiting and no diarrhea or abdominal pain. He has no chest pain or shortness of breath no cough sore throat runny nose for rashes. He has no urinary complaints and no flank pain. He tells me that after his surgery he has been doing physical therapy on his own and has been doing very well until about a week ago when he was still on crutches and taking small steps and he felt like he had a setback because there was increased pain at his hip and there was slipping of the hip with the hardware. He contacted his surgeon back in [place] who told him that he needed to come back and have it revised and he said that he has here working and cannot do that at this time. Over the last 1 week he has had repeated episodes where he felt like his he was slipping and there is pain but currently he does not feel like it is out. He says the pain is mostly when he moves at the hip or when he is weightbearing but just laying in bed here in the ED he says the pain is not that bad. He says his incisions are healing well and he does not notice any redness or swelling to his hip joint. He has no midline back pain or flank pain. He came in tonight because he has had a subjective fever and chills all day and is concerned because his surgeon at home said that he is susceptible for infection in the hip joint and the patient is worried about that The patient has told nursing that he quit taking any pain medication and he is currently not on any medications. Please see below for more information about iron supplementation. Please also see below for more information regarding his prior admission here and the circumstances around his admission for his hip surgery 3 weeks ago. Review of systems: As per history of present illness and below otherwise all systems reviewed and negative. Past medical history: As per history of present illness and as reviewed below otherwise noncontributory. Surgical history: As per history of present illness and as reviewed below otherwise noncontributory. Social history: No reported history of drug or alcohol abuse. Family history: As per history of present illness and as reviewed below otherwise noncontributory. Physical exam: General: Well-developed well-nourished mildly overweight man who is nontoxic and vital signs are noted by me. Oral temperature here is 103 HEENT: Atraumatic, normocephalic, negative for conjunctival pallor or scleral icterus, mucous membranes moist, throat clear, neck supple, nontender, trachea midline. There is no cervical adenopathy or nuchal rigidity Lungs: Clear to auscultation, breath sounds equal bilaterally, chest nontender. Her breathing wheezing or stridor Heart: S1S2, regular rhythm and slightly tachycardic rate on my evaluation, negative for clicks, rubs, or JVD. Abdomen: Soft, nondistended, nontender. Negative for masses or hepatosplenomegaly. Negative for costovertebral tenderness. Pelvis: Stable nontender. Genitourinary: Deferred. Rectal: Deferred. Extremities: Atraumatic, negative for cords or calf pain. Neurovascular unremarkable. At the left hip there are several small incision seen which have scabs on them and they are clean and dry without any fluctuance or drainage and the entire left hip area has no erythema no warmth no soft tissue swelling or joint effusion. When I palpate at the proximal femur area and hip joints as well as the pelvis I cannot elicit the pain on palpation nor is the patient uncomfortable. In general, motion spontaneously does not trigger any discomfort and I don't feel any bony defects or obvious malalignment/dislocation. The right hip which also has a hip replacement has full range of motion without defects deficits or pain Neuro: Awake, alert, oriented. Cranial nerves II through XII unremarkable. Cerebellum unremarkable. Motor and sensory unremarkable throughout. Exam nonfocal. Diagnostics: CBC CMP lactic acid blood cultures UA with micro-urine culture chest x-ray left hip with pelvis x-ray Therapeutics: IV fluids Tylenol Toradol Zofran Motrin The patient was noted to have a hemoglobin of 7.7 and he has told nursing that he is supposed to be taking oral iron supplementation for iron deficiency anemia but he does not take it because it upsets his stomach. In my research on the computer the patient was admitted mid March of this year a proximally 2 weeks after his other hip replacement on the right side for generalized weakness chills and was found to have iron deficiency anemia. His hemoglobin was 8.1 and he was given 2 units of blood along with iron infusion and was recommended to have further testing as an outpatient. The patient subsequently had an EGD and colonoscopy here with Dr. Venegas which revealed a negative colonoscopy and some mild gastritis and esophagitis on his EGD. The patient does say that his ostomy taking iron and he has not been taking it. The patient tells me that when he was admitted for his hip surgery he was very anemic and had to get blood transfusions even before his surgery. He denies any abdominal pain he has not had black or bloody stools. He is currently up-to- date on all the testing results I obtained including his hemoglobin of 7.7 and I 'm currently awaiting his urine test to see if that is potentially the focus of his fever. He is aware that at this point I do not have a source and if the urine test is negative we will have to have a dialogue about steps going forward to further evaluate this. 0038: As discussed with the orthopedic surgeon on-call at and [place], Dr. Hull. He says that it is unusual that he would have a septic joint as a result of the surgery 3-1/2 weeks ago but he says that the joint is always a potential source of infection. He is saying that from my description of the patient's clinical findings and his lab tests it is less likely but the patient would need either a joint aspiration or a triple phase bone scan to completely rule it out. He says that at this point he does not feel that I should transfer the patient emergently and that he could be watched in our institution to see whether or not his symptoms resolve and it is all viral and/ or the blood or urine cultures come back with any significant findings. He is also aware the patient is anemic 0058: Case was discussed with Dr. Yeh who would like no antibiotics to be given and no blood to be given at this time but will watch him for the next 12- 24 hours and recontact the orthopedic surgeon if the patient worsens or continues to spike temps for transfer. The patient is comfortable with this plan. He is currently laying on his left side on the new hip replacement without any discomfort. Impression: Fever of unclear source Definitive disposition and diagnosis as appropriate pending reevaluation and review of above. Generalized Pain Score (Numeric/FACES): 8 - Related Data Allergies Allergy/AdvReac Type Severity Reaction Status Date / Time No Known Allergies Allergy Verified 10/17/18 21:28 Home Meds: Home Meds . [No Known Home Meds] 10/17/18 [History] Past Medical History Cardiovascular History: Reports: Aneurysm, Blood Clots/VTE/DVT, Hypertension Other Cardiovascular History: hx of blood clot behind knee-left leg Respiratory History: Reports: Sleep Apnea Other Respiratory History: dose not use CPAP Gastrointestinal History: Reports: GERD, Other (See Below) (h/o esophageal ulcers '98) Genitourinary History: Reports: BPH Musculoskeletal History: Reports: Arthritis Neurological History: Reports: CVA Other Neuro History: 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 Hematologic History: Reports: Anemia (source unknown, recently received 4 units PRBC), Blood Transfusion(s) - Infectious Disease History Infectious Disease History: Reports: Shingles - Past Surgical History Head Surgeries/Procedures: Reports: None HEENT Surgical History: Reports: Tonsillectomy Cardiovascular Surgical History: Reports: Coronary Artery Stent (umbrella stent placement) Other Cardiovascular Surgeries/Procedures: thoracic aortic aneurysm repair with repair of aortic valve GI Surgical History: Reports: Colonoscopy (x3), EGD, Hernia, Abdominal Musculoskeletal Surgical History: Reports: Arthroscopic Knee, Hip Replacement, Other (See Below) Other Musculoskeletal Surgeries/Procedures:: Left Foot with hardware, recent rt hip replacement (03/12/2018), left knee surgery Social & Family History - Family History Family Medical History: Noncontributory - Caffeine Use Caffeine Use: Reports: None ED ROS GENERAL - Review of Systems Review Of Systems: ROS reveals no pertinent complaints other than HPI. ED EXAM, GENERAL - Physical Exam Exam: See Below (See dictation) Course - Vital Signs Last Recorded V/S: Last Vital Signs Temp 37.7 C 10/18/18 00:35 Pulse 84 10/18/18 00:35 Resp 18 10/18/18 00:35 BP 133/71 10/18/18 00:35 Pulse Ox 94 L 10/18/18 00:35 - Orders/Labs/Meds Orders: Active Orders 24 hr Category Date Time Status CULTURE BLOOD [BC] Stat Lab 10/17/18 21:59 Received CULTURE BLOOD [BC] Stat Lab 10/17/18 22:15 Received CULTURE URINE [RM] Stat Lab 10/17/18 23:36 Received Sodium Chloride 0.9% [Saline Flush] Med 10/17/18 21:39 Active 10 ml FLUSH ASDIRECTED PRN Sodium Chloride 0.9% [Saline Flush] Med 10/17/18 21:39 Active 2.5 ml FLUSH ASDIRECTED PRN Blood Culture x2 Reflex Set [OM.PC] Stat Oth 10/17/18 21:39 Ordered Saline Lock Insert [OM.PC] Stat Oth 10/17/18 21:38 Ordered Medication Orders Sodium Chloride (Saline Flush) 10 ml FLUSH ASDIRECTED PRN PRN Reason: Keep Vein Open Last Admin: 10/17/18 22:01 Dose: 10 ml Sodium Chloride (Saline Flush) 2.5 ml FLUSH ASDIRECTED PRN PRN Reason: Keep Vein Open Last Admin: 10/17/18 22:01 Dose: 2.5 ml Labs: Laboratory Tests 10/17/18 10/17/18 10/17/18 Range/Units 21:59 21:59 21:59 WBC 6.20 (4.0-11.0) K/uL RBC 2.89 L (4.50-5.90) M/uL Hgb 7.7 L (13.0-17.0) g/dL Hct 24.3 L (38.0-50.0) % MCV 84.1 (80.0-98.0) fL MCH 26.6 L (27.0-32.0) pg MCHC 31.7 (31.0-37.0) g/dL RDW Std Deviation 40.4 (28.0-62.0) fl RDW Coeff of Jose Martin 14 (11.0-15.0) % Plt Count 353 (150-400) K/uL MPV 9.10 (7.40-12.00) fL Neut % (Auto) 80.9 H (48.0-80.0) % Lymph % (Auto) 10.6 L (16.0-40.0) % [place] % (Auto) 7.7 (0.0-15.0) % Eos % (Auto) 0.5 (0.0-7.0) % Baso % (Auto) 0.3 (0.0-1.5) % Neut # (Auto) 5.0 (1.4-5.7) K/uL Lymph # (Auto) 0.7 (0.6-2.4) K/uL [place] # (Auto) 0.5 (0.0-0.8) K/uL Eos # (Auto) 0.0 (0.0-0.7) K/uL Baso # (Auto) 0.0 (0.0-0.1) K/uL Lactate 2.3 H (0.20-2.00) mmol/L Sodium 140 (136-148) mmol/L Potassium 3.7 (3.5-5.1) mmol/L Chloride 106 (98-107) mmol/L Carbon Dioxide 21.1 (21.0-32.0) mmol/L BUN 15 (7.0-18.0) mg/dL Creatinine 1.4 H (0.8-1.3) mg/dL Est Cr Clr Drug Dosing 59.45 mL/min Estimated GFR (MDRD) 50.9 ml/min Glucose 129 H (74-106) mg/dL Calcium 9.0 (8.5-10.1) mg/dL Total Bilirubin 0.4 (0.2-1.0) mg/dL AST 27 (15-37) IU/L ALT 39 (14-63) IU/L Alkaline Phosphatase 123 H (46-116) U/L Total Protein 7.0 (6.4-8.2) g/dL Albumin 3.4 (3.4-5.0) g/dL Globulin 3.6 (2.6-4.0) g/dL Albumin/Globulin Ratio 0.9 (0.9-1.6) Urine Color Urine Appearance Urine pH (5.0-8.0) Ur Specific [place] (1.001-1.035) Urine Protein (NEGATIVE) mg/dL Urine Glucose (UA) (NEGATIVE) mg/dL Urine Ketones (NEGATIVE) mg/dL Urine Occult Blood (NEGATIVE) Urine Nitrite (NEGATIVE) Urine Bilirubin (NEGATIVE) Urine Urobilinogen (<2.0) EU/dL Ur Leukocyte Esterase (NEGATIVE) Urine RBC (0-2/HPF) Urine WBC (0-5/HPF) Ur Epithelial Cells (NONE-FEW) Urine Bacteria (NEGATIVE) 10/17/18 Range/Units 23:36 WBC (4.0-11.0) K/uL RBC (4.50-5.90) M/uL Hgb (13.0-17.0) g/dL Hct (38.0-50.0) % MCV (80.0-98.0) fL MCH (27.0-32.0) pg MCHC (31.0-37.0) g/dL RDW Std Deviation (28.0-62.0) fl RDW Coeff of Jose Martin (11.0-15.0) % Plt Count (150-400) K/uL MPV (7.40-12.00) fL Neut % (Auto) (48.0-80.0) % Lymph % (Auto) (16.0-40.0) % [place] % (Auto) (0.0-15.0) % Eos % (Auto) (0.0-7.0) % Baso % (Auto) (0.0-1.5) % Neut # (Auto) (1.4-5.7) K/uL Lymph # (Auto) (0.6-2.4) K/uL [place] # (Auto) (0.0-0.8) K/uL Eos # (Auto) (0.0-0.7) K/uL Baso # (Auto) (0.0-0.1) K/uL Lactate (0.20-2.00) mmol/L Sodium (136-148) mmol/L Potassium (3.5-5.1) mmol/L Chloride (98-107) mmol/L Carbon Dioxide (21.0-32.0) mmol/L BUN (7.0-18.0) mg/dL Creatinine (0.8-1.3) mg/dL Est Cr Clr Drug Dosing mL/min Estimated GFR (MDRD) ml/min Glucose (74-106) mg/dL Calcium (8.5-10.1) mg/dL Total Bilirubin (0.2-1.0) mg/dL AST (15-37) IU/L ALT (14-63) IU/L Alkaline Phosphatase (46-116) U/L Total Protein (6.4-8.2) g/dL Albumin (3.4-5.0) g/dL Globulin (2.6-4.0) g/dL Albumin/Globulin Ratio (0.9-1.6) Urine Color YELLOW Urine Appearance CLEAR Urine pH 8.5 H (5.0-8.0) Ur Specific [place] 1.015 (1.001-1.035) Urine Protein NEGATIVE (NEGATIVE) mg/dL Urine Glucose (UA) NEGATIVE (NEGATIVE) mg/dL Urine Ketones NEGATIVE (NEGATIVE) mg/dL Urine Occult Blood NEGATIVE (NEGATIVE) Urine Nitrite NEGATIVE (NEGATIVE) Urine Bilirubin NEGATIVE (NEGATIVE) Urine Urobilinogen 0.2 (<2.0) EU/dL Ur Leukocyte Esterase NEGATIVE (NEGATIVE) Urine RBC 0-2 (0-2/HPF) Urine WBC 0-2 (0-5/HPF) Ur Epithelial Cells RARE (NONE-FEW) Urine Bacteria RARE (NEGATIVE) Meds: Medications Generic Name Dose Route Start Last Admin Trade Name Ben PRN Reason Stop Dose Admin Sodium Chloride 10 ml 10/17/18 21:39 10/17/18 22:01 Saline Flush FLUSH 10 ml ASDIRECTED PRN Administration Keep Vein Open Sodium Chloride 2.5 ml 10/17/18 21:39 10/17/18 22:01 Saline Flush FLUSH 2.5 ml ASDIRECTED PRN Administration Keep Vein Open Discontinued Medications Generic Name Dose Route Start Last Admin Trade Name Freq PRN Reason Stop Dose Admin Acetaminophen 1,000 mg 10/17/18 21:41 10/17/18 22:00 Tylenol Extra Strength PO 10/17/18 21:42 1,000 mg ONETIME ONE Administration Sodium Chloride 1,000 mls @ 999 mls/hr 10/17/18 23:18 10/17/18 23:30 Normal Saline IV 10/18/18 00:18 999 mls/hr STAT ONE Administration Ibuprofen 800 mg 10/17/18 23:05 10/17/18 23:12 Motrin PO 10/17/18 23:06 800 mg ONETIME ONE Administration Ketorolac Tromethamine 30 mg 10/17/18 21:41 10/17/18 22:01 Toradol IVPUSH 10/17/18 21:42 30 mg ONETIME ONE Administration Ondansetron HCl 4 mg 10/17/18 21:41 10/17/18 22:01 Zofran IVPUSH 10/17/18 21:42 4 mg ONETIME ONE Administration Departure - Departure Time of Disposition: 01:13 Disposition: Refer to Observation Condition: Good Clinical Impression: Fever Qualifiers: Fever type: unspecified Qualified Code(s): R50.9 - Fever, unspecified - Discharge Information Referrals: PCP,None [Primary Care Provider] - Forms: ED Department Discharge - My Orders Last 24 Hours: My Active Orders 10/17/18 21:38 Saline Lock Insert [OM.PC] Stat 10/17/18 21:39 Sodium Chloride 0.9% [Saline Flush] 10 ml FLUSH ASDIRECTED PRN Sodium Chloride 0.9% [Saline Flush] 2.5 ml FLUSH ASDIRECTED PRN Blood Culture x2 Reflex Set [OM.PC] Stat 10/17/18 21:59 CULTURE BLOOD [BC] Stat 10/17/18 22:15 CULTURE BLOOD [BC] Stat 10/17/18 23:36 CULTURE URINE [RM] Stat - Assessment/Plan Last 24 Hours: My Active Orders 10/17/18 21:38 Saline Lock Insert [OM.PC] Stat 10/17/18 21:39 Sodium Chloride 0.9% [Saline Flush] 10 ml FLUSH ASDIRECTED PRN Sodium Chloride 0.9% [Saline Flush] 2.5 ml FLUSH ASDIRECTED PRN Blood Culture x2 Reflex Set [OM.PC] Stat 10/17/18 21:59 CULTURE BLOOD [BC] Stat 10/17/18 22:15 CULTURE BLOOD [BC] Stat 10/17/18 23:36 CULTURE URINE [RM] Stat
[2018-10-17 22:32] LABS: CARBON DIOXIDE,CO2 21.1 mmol/L (21.0-32.0); POTASSIUM,K 3.7 mmol/L (3.5-5.1)
[2018-10-17] MEDS ORDERED: Ibuprofen 800 MG Tab PO ONE (23:05)
[2018-10-17] MEDS ORDERED: Sodium Chloride 0.9% 1,000 ML IV ONE (23:18)
--- NOTE | 2018-10-17 23:24 | CR ---
INDICATION: Fever TECHNIQUE: Chest radiograph 1 view COMPARISON: 03/26/2018 FINDINGS: Moderate to severe degradation of image quality noted due to body habitus. Mediastinum: Previous median sternotomy and coronary artery bypass grafting (CABG) noted. Enlargement of the central pulmonary arteries are noted without interval change, suspicious for mild pulmonary hypertension. Mild stable cardiomegaly seen. Lung: Both lungs are unremarkable in appearance. No sign of pleural effusion seen. No pneumothorax is identified. IMPRESSION: 1. Mild stable cardiomegaly seen. Dictated by Stephen Greenwood MD @ 10/17/2018 11:24:03 PM Dictated by: Stephen Greenwood MD @ 10/17/2018 23:24:08 (Electronically Signed)
--- NOTE | 2018-10-17 23:26 | CR ---
INDICATION: Recent surgery, pelvic and hip pain and fever TECHNIQUE: Pelvis radiograph, Hip radiograph 4 views left COMPARISON: 04/08/2018 FINDINGS: Bone: No acute osseous injuries or aggressive bone lesions are identified. A right total hip arthroplasty is present with 1 of the acetabular cup screws projecting 1.3 cm beyond the acetabular cortex, unchanged from prior exam. Joint: Interval left bipolar hip prosthesis placement is noted. Severe bilateral facet osteoarthritis is present at L5-S1. The visualized sacroiliac joints are unremarkable in appearance. The pubic symphysis is normal in appearance. Soft tissue: Unremarkable. The visualized bowel gas pattern of the pelvis is unremarkable in appearance. No radiopaque foreign bodies are seen. IMPRESSION: 1. Interval left bipolar hip prosthesis placement is noted. Dictated by Stephen Greenwood MD @ 10/17/2018 11:25:44 PM Dictated by: Stephen Greenwood MD @ 10/17/2018 23:25:49 (Electronically Signed)
[2018-10-18] MEDS ORDERED: Acetaminophen 325 MG Tab PO PRN (01:52)
[2018-10-18 03:17] LABS: CARBON DIOXIDE,CO2 23.3 mmol/L (21.0-32.0); POTASSIUM,K 3.8 mmol/L (3.5-5.1)
--- NOTE | 2018-10-18 08:25 | PCM.HP ---
H&P History of Present Illness - General Date of Service: 10/18/18 Admit Problem/Dx: Admission Diagnosis/Problem Admission Diagnosis/Problem Fever - History of Present Illness Initial Comments - Free Text/Narative: 63-year-old male presents to [facility] ER with left hip pain. He had a left total hip replacement in [place] approximately 3.5 weeks ago. He reports for the past week he has had increasing pain in his left hip and fevers. The hip feels like it has been "slipping" so he contacted his surgeon in [place] who told him that he needs to go back to [place] to have a revision done. Patient reports that he is unable to do that because he is working in [place]. Patient denies any redness or swelling of his left hip. Orthopedic surgeon, Dr. Thorne, in [place] was contacted and said that septic joint would be unusual based on patient's presentation and lab findings, however, is possible and would have to be ruled out by joint aspiration or bone scan. He also said that this does not need to be done emergently and recommended monitoring patient for any spiking fevers or positive cultures and contacting him again if that is the case. Patient also has a history of iron deficiency anemia and hemoglobin level on admission was 7.7. He reports that he is supposed to be taking iron pills but does not do so because they cause GI discomfort. Generalized Pain Score (Numeric/FACES): 5 - Related Data Allergies/Adverse Reactions: Allergies Allergy/AdvReac Type Severity Reaction Status Date / Time No Known Allergies Allergy Verified 10/18/18 02:42 Home Medications: Home Meds Cholecalciferol (Vitamin D3) [Vitamin D3] 5,000 unit PO .WEEKLY 10/18/18 [ History] Diclofenac Sodium [Voltaren] 75 mg PO BID 10/18/18 [History] Ferrous Sulfate 324 mg PO TIDMEALS 10/18/18 [History] Metoprolol Tartrate 50 mg PO BID 10/18/18 [History] Pantoprazole [ProTONIX] 40 mg PO DAILY 10/18/18 [History] Past Medical History Cardiovascular History: Reports: Aneurysm, Blood Clots/VTE/DVT, Hypertension, Stents Other Cardiovascular History: hx of blood clot behind knee-left leg, Respiratory History: Reports: Sleep Apnea Other Respiratory History: dose not use CPAP Gastrointestinal History: Reports: GERD Genitourinary History: Reports: BPH Musculoskeletal History: Reports: Arthritis Neurological History: Reports: CVA Other Neuro History: 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 Psychiatric History: Reports: None Endocrine/Metabolic History: Reports: None Hematologic History: Reports: Anemia, Blood Transfusion(s) Immunologic History: Reports: None Oncologic (Cancer) History: Reports: None Dermatologic History: Reports: None - Infectious Disease History Infectious Disease History: Reports: Shingles - Past Surgical History Head Surgeries/Procedures: Reports: None HEENT Surgical History: Reports: Tonsillectomy, Other (See Below) Other HEENT Surgeries/Procedures: Adnoids out at age 19 Cardiovascular Surgical History: Reports: Coronary Artery Stent Other Cardiovascular Surgeries/Procedures: thoracic aortic aneurysm repair with repair of aortic valve GI Surgical History: Reports: Colonoscopy, EGD, Hernia, Abdominal Musculoskeletal Surgical History: Reports: Arthroscopic Knee, Hip Replacement, Other (See Below) Other Musculoskeletal Surgeries/Procedures:: Left Foot with hardware, recent rt hip replacement (03/12/2018), left knee surgery, left hip replaced September 2018 Social & Family History - Family History Family Medical History: Noncontributory - Tobacco Use Smoking Status *Q: Never Smoker - Caffeine Use Caffeine Use: Reports: Other Other Caffeine Use: Excedrin - Recreational Drug Use Recreational Drug Use: No H&P Review of Systems - Review of Systems: Review Of Systems: ROS reveals no pertinent complaints other than HPI. Exam - Exam Exam: See Below - Vital Signs Vital Signs: Last Vital Signs Temp 98.6 F 10/18/18 07:50 Pulse 74 10/18/18 07:50 Resp 18 10/18/18 07:50 BP 138/75 10/18/18 07:50 Pulse Ox 93 L 10/18/18 07:50 Weight: 238 lb 14.4 oz - Exam General: Alert, Oriented, Cooperative (NAD) HEENT: Conjunctiva Clear, EOMI, Pupils Equal Neck: Supple, Trachea Midline Lungs: Clear to Auscultation, Normal Respiratory Effort Cardiovascular: Regular Rate, Regular Rhythm GI/Abdominal Exam: Normal Bowel Sounds, Soft, Non-Tender, No Distention Extremities: Normal Inspection, No Pedal Edema, Other (Left hip: Incision site is clean and dry. No surround erythema or edema appreciated. Non-tender to palpation.) Peripheral Pulses: 2+: Posterior Tibial (L), Posterior Tibial (R) Skin: Warm, Dry, Intact Neurological: Cranial Nerves Intact, Strength Equal Bilateral, Normal Tone, Sensation Intact Neuro Extensive - Mental Status: Alert, Oriented x3, Normal Mood/Affect Psychiatric: Alert, Normal Affect, Normal Mood - Patient Data Lab Results Last 24 hrs: Laboratory Results - last 24 hr 10/17/18 10/17/18 10/17/18 Range/Units 21:59 21:59 21:59 WBC 6.20 (4.0-11.0) K/uL RBC 2.89 L (4.50-5.90) M/uL Hgb 7.7 L (13.0-17.0) g/dL Hct 24.3 L (38.0-50.0) % MCV 84.1 (80.0-98.0) fL MCH 26.6 L (27.0-32.0) pg MCHC 31.7 (31.0-37.0) g/dL RDW Std Deviation 40.4 (28.0-62.0) fl RDW Coeff of Jose Martin 14 (11.0-15.0) % Plt Count 353 (150-400) K/uL MPV 9.10 (7.40-12.00) fL Neut % (Auto) 80.9 H (48.0-80.0) % Lymph % (Auto) 10.6 L (16.0-40.0) % [place] % (Auto) 7.7 (0.0-15.0) % Eos % (Auto) 0.5 (0.0-7.0) % Baso % (Auto) 0.3 (0.0-1.5) % Neut # (Auto) 5.0 (1.4-5.7) K/uL Lymph # (Auto) 0.7 (0.6-2.4) K/uL [place] # (Auto) 0.5 (0.0-0.8) K/uL Eos # (Auto) 0.0 (0.0-0.7) K/uL Baso # (Auto) 0.0 (0.0-0.1) K/uL Lactate 2.3 H (0.20-2.00) mmol/L Sodium 140 (136-148) mmol/L Potassium 3.7 (3.5-5.1) mmol/L Chloride 106 (98-107) mmol/L Carbon Dioxide 21.1 (21.0-32.0) mmol/L BUN 15 (7.0-18.0) mg/dL Creatinine 1.4 H (0.8-1.3) mg/dL Est Cr Clr Drug Dosing 59.45 mL/min Estimated GFR (MDRD) 50.9 ml/min Glucose 129 H (74-106) mg/dL Calcium 9.0 (8.5-10.1) mg/dL Total Bilirubin 0.4 (0.2-1.0) mg/dL AST 27 (15-37) IU/L ALT 39 (14-63) IU/L Alkaline Phosphatase 123 H (46-116) U/L Total Protein 7.0 (6.4-8.2) g/dL Albumin 3.4 (3.4-5.0) g/dL Globulin 3.6 (2.6-4.0) g/dL Albumin/Globulin Ratio 0.9 (0.9-1.6) Urine Color Urine Appearance Urine pH (5.0-8.0) Ur Specific [place] (1.001-1.035) Urine Protein (NEGATIVE) mg/dL Urine Glucose (UA) (NEGATIVE) mg/dL Urine Ketones (NEGATIVE) mg/dL Urine Occult Blood (NEGATIVE) Urine Nitrite (NEGATIVE) Urine Bilirubin (NEGATIVE) Urine Urobilinogen (<2.0) EU/dL Ur Leukocyte Esterase (NEGATIVE) Urine RBC (0-2/HPF) Urine WBC (0-5/HPF) Ur Epithelial Cells (NONE-FEW) Urine Bacteria (NEGATIVE) 10/17/18 10/18/18 10/18/18 Range/Units 23:36 02:52 02:52 WBC 6.04 (4.0-11.0) K/uL RBC 2.74 L (4.50-5.90) M/uL Hgb 7.3 L (13.0-17.0) g/dL Hct 23.0 L (38.0-50.0) % MCV 83.9 (80.0-98.0) fL MCH 26.6 L (27.0-32.0) pg MCHC 31.7 (31.0-37.0) g/dL RDW Std Deviation 40.8 (28.0-62.0) fl RDW Coeff of Jose Martin 14 (11.0-15.0) % Plt Count 319 (150-400) K/uL MPV 8.80 (7.40-12.00) fL Neut % (Auto) 68.5 (48.0-80.0) % Lymph % (Auto) 24.5 (16.0-40.0) % [place] % (Auto) 6.6 (0.0-15.0) % Eos % (Auto) 0.2 (0.0-7.0) % Baso % (Auto) 0.2 (0.0-1.5) % Neut # (Auto) 4.1 (1.4-5.7) K/uL Lymph # (Auto) 1.5 (0.6-2.4) K/uL [place] # (Auto) 0.4 (0.0-0.8) K/uL Eos # (Auto) 0.0 (0.0-0.7) K/uL Baso # (Auto) 0.0 (0.0-0.1) K/uL Lactate (0.20-2.00) mmol/L Sodium 142 (136-148) mmol/L Potassium 3.8 (3.5-5.1) mmol/L Chloride 108 H (98-107) mmol/L Carbon Dioxide 23.3 (21.0-32.0) mmol/L BUN 14 (7.0-18.0) mg/dL Creatinine 1.3 (0.8-1.3) mg/dL Est Cr Clr Drug Dosing 64.02 mL/min Estimated GFR (MDRD) 55.4 ml/min Glucose 140 H (74-106) mg/dL Calcium 8.2 L (8.5-10.1) mg/dL Total Bilirubin (0.2-1.0) mg/dL AST (15-37) IU/L ALT (14-63) IU/L Alkaline Phosphatase (46-116) U/L Total Protein (6.4-8.2) g/dL Albumin (3.4-5.0) g/dL Globulin (2.6-4.0) g/dL Albumin/Globulin Ratio (0.9-1.6) Urine Color YELLOW Urine Appearance CLEAR Urine pH 8.5 H (5.0-8.0) Ur Specific [place] 1.015 (1.001-1.035) Urine Protein NEGATIVE (NEGATIVE) mg/dL Urine Glucose (UA) NEGATIVE (NEGATIVE) mg/dL Urine Ketones NEGATIVE (NEGATIVE) mg/dL Urine Occult Blood NEGATIVE (NEGATIVE) Urine Nitrite NEGATIVE (NEGATIVE) Urine Bilirubin NEGATIVE (NEGATIVE) Urine Urobilinogen 0.2 (<2.0) EU/dL Ur Leukocyte Esterase NEGATIVE (NEGATIVE) Urine RBC 0-2 (0-2/HPF) Urine WBC 0-2 (0-5/HPF) Ur Epithelial Cells RARE (NONE-FEW) Urine Bacteria RARE (NEGATIVE) 10/18/18 Range/Units 02:52 WBC (4.0-11.0) K/uL RBC (4.50-5.90) M/uL Hgb (13.0-17.0) g/dL Hct (38.0-50.0) % MCV (80.0-98.0) fL MCH (27.0-32.0) pg MCHC (31.0-37.0) g/dL RDW Std Deviation (28.0-62.0) fl RDW Coeff of Jose Martin (11.0-15.0) % Plt Count (150-400) K/uL MPV (7.40-12.00) fL Neut % (Auto) (48.0-80.0) % Lymph % (Auto) (16.0-40.0) % [place] % (Auto) (0.0-15.0) % Eos % (Auto) (0.0-7.0) % Baso % (Auto) (0.0-1.5) % Neut # (Auto) (1.4-5.7) K/uL Lymph # (Auto) (0.6-2.4) K/uL [place] # (Auto) (0.0-0.8) K/uL Eos # (Auto) (0.0-0.7) K/uL Baso # (Auto) (0.0-0.1) K/uL Lactate 0.9 (0.20-2.00) mmol/L Sodium (136-148) mmol/L Potassium (3.5-5.1) mmol/L Chloride (98-107) mmol/L Carbon Dioxide (21.0-32.0) mmol/L BUN (7.0-18.0) mg/dL Creatinine (0.8-1.3) mg/dL Est Cr Clr Drug Dosing mL/min Estimated GFR (MDRD) ml/min Glucose (74-106) mg/dL Calcium (8.5-10.1) mg/dL Total Bilirubin (0.2-1.0) mg/dL AST (15-37) IU/L ALT (14-63) IU/L Alkaline Phosphatase (46-116) U/L Total Protein (6.4-8.2) g/dL Albumin (3.4-5.0) g/dL Globulin (2.6-4.0) g/dL Albumin/Globulin Ratio (0.9-1.6) Urine Color Urine Appearance Urine pH (5.0-8.0) Ur Specific [place] (1.001-1.035) Urine Protein (NEGATIVE) mg/dL Urine Glucose (UA) (NEGATIVE) mg/dL Urine Ketones (NEGATIVE) mg/dL Urine Occult Blood (NEGATIVE) Urine Nitrite (NEGATIVE) Urine Bilirubin (NEGATIVE) Urine Urobilinogen (<2.0) EU/dL Ur Leukocyte Esterase (NEGATIVE) Urine RBC (0-2/HPF) Urine WBC (0-5/HPF) Ur Epithelial Cells (NONE-FEW) Urine Bacteria (NEGATIVE) Result Diagrams: 10/18/18 02:52 10/18/18 02:52 Problem List Initiated/Reviewed/Updated: Yes Orders Last 24hrs: Active Orders 24 hr Category Date Time Status Patient Status [ADT] Stat ADT 10/18/18 01:14 Active Regular Diet [DIET] Diet 10/18/18 Breakfast Active CULTURE BLOOD [BC] Stat Lab 10/17/18 21:59 Received CULTURE BLOOD [BC] Stat Lab 10/17/18 22:15 Received CULTURE URINE [RM] Stat Lab 10/17/18 23:36 Received Acetaminophen [Tylenol] Med 10/18/18 01:52 Active 325 mg PO Q6H PRN Sodium Chloride 0.9% [Saline Flush] Med 10/17/18 21:39 Active 10 ml FLUSH ASDIRECTED PRN Sodium Chloride 0.9% [Saline Flush] Med 10/17/18 21:39 Active 2.5 ml FLUSH ASDIRECTED PRN Blood Culture x2 Reflex Set [OM.PC] Stat Oth 10/17/18 21:39 Ordered Saline Lock Insert [OM.PC] Stat Oth 10/17/18 21:38 Ordered Resuscitation Status Routine Resus Stat 10/18/18 08:15 Ordered Medication Orders Acetaminophen (Tylenol) 325 mg PO Q6H PRN PRN Reason: Pain Sodium Chloride (Saline Flush) 10 ml FLUSH ASDIRECTED PRN PRN Reason: Keep Vein Open Last Admin: 10/17/18 22:01 Dose: 10 ml Sodium Chloride (Saline Flush) 2.5 ml FLUSH ASDIRECTED PRN PRN Reason: Keep Vein Open Last Admin: 10/17/18 22:01 Dose: 2.5 ml Assessment/Plan Comment:: Assessment: 1. Left hip pain s/p total hip replacement. 2. Fever. 3. Normocytic anemia. 4. Past medical history of: HTN, gastritis, DVT, CVA and CAD s/p stents. Plan: 1. For left hip pain, will continue to monitor for pain and fevers. Blood culture pending. Patient has been afebrile overnight but did have 103 F oral temp on admission. As per orthopedic surgeon Dr. Thorne, will continue to monitor and contact him if patient develops pain, spikes fevers or positive culture. Patient was told by his surgeon in [place] that he would require a revision. 2. For normocytic anemia, patient's hemoglobin level on admission was 7.3 and was told he is to take iron pills but has not been doing so because they cause GI upset. Will transfuse patient with 1 unit PRBC's today. Will order iron studies. Disposition: Patient has ongoing fevers despite administering tylenol. We suspect the possibility of joint infection of patient's left hip which recently underwent total joint replacement approximately 3 weeks. [facility] does not have the capability to do a full diagnostic work-up that would include a joint aspiration. I have spoken to Dr. Thorne of orthopaedic surgery at [facility] in [place] who has accepted patient for further evaluation and treatment. Patient will be discharged and transferred to [facility] in [place] today.
[2018-10-18] MEDS ORDERED: Ondansetron 4 MG Tab.DIS PO PRN (13:07)
[2018-10-18] MEDS ORDERED: Ondansetron 4 MG/2 ML SDV IVPUSH PRN (13:10)
[2018-10-18] MEDS ORDERED: Enoxaparin 40 MG/0.4 ML Syringe SUBCUT SCH (13:15)
[2018-10-18] MEDS ORDERED: Acetaminophen 650 MG in Premix Bag 1 BAG IV ONE (13:59)
[2018-10-18] MEDS ORDERED: Acetaminophen 650 MG Supp RECTAL ONE (14:48)
[2018-10-18] MEDS ORDERED: Morphine 2 MG/ML Syringe IVPUSH ONE (15:18)
== END 2018-10-18 16:34 ==
LOC: MW.ED 20:48 → MW.MS 10-18 01:14
PROVIDERS: ADMIT Internal Medicine; ATTEND Internal Medicine
DX: M25.552 Pain in left hip (principal); R50.9 Fever, unspecified; K21.9 Gastro-esophageal reflux disease without esophagitis; M19.90 Unspecified osteoarthritis, unspecified site; D64.9 Anemia, unspecified; I10 Essential (primary) hypertension; Z96.642 Presence of left artificial hip joint; Z86.2 Personal history of diseases of the blood and blood-forming organs and certain disorders involving the immune mechanism; Z87.19 Personal history of other diseases of the digestive system; Z86.718 Personal history of other venous thrombosis and embolism; Z86.73 Personal history of transient ischemic attack (TIA), and cerebral infarction without residual deficits; Z79.899 Other long term (current) drug therapy; Z79.1 Long term (current) use of non-steroidal anti-inflammatories (NSAID); I25.10 Atherosclerotic heart disease of native coronary artery without angina pectoris; Z95.5 Presence of coronary angioplasty implant and graft
CPT/HCPCS: 36415; 36430; 71045; 73502; 80048; 80053; 81001; 82728; 83550; 83605; 85025; 86850; 86900; 86901; 86920; 86921; 86922; 87040; 87086; 96361; 96372; 96374; 96375; 99284; A9270; G0378; J1650; J1885; J2270; J2405; J7040; P9016

== ENCOUNTER 2019-04-10 12:21 | Emergency (ER) | payer MEDICARE, OTHER ==
--- NOTE | 2019-04-10 12:56 | EDM.PDOC ---
ED HPI GENERAL MEDICAL PROBLEM - General Chief Complaint: General Stated Complaint: ELEVATED POTASSIUM LEVELS, REFD BY Time Seen by Provider: 04/10/19 12:55 Source of Information: Reports: Patient - History of Present Illness INITIAL COMMENTS - FREE TEXT/NARRATIVE: HISTORY AND PHYSICAL: History of present illness: [Patient presents for recheck of hyperkalemia, patient had lab performed at [place] with a potassium of 6.1 there is no notation of a hemolyzed specimen on their lab On repeat labs here potassium is measured at 5.1 which is within normal limits on our system I did perform an EKG with no changes consistant with hyperkalemia] Has no symptoms no fever nausea vomiting chills sweats no chest pain shortness of breath headache dizziness palpitation no bowel or urine symptoms He states he was obtaining the lab for life insurance purposes Review of systems: As per history of present illness and below otherwise all systems reviewed and negative. Past medical history: As per history of present illness and as reviewed below otherwise noncontributory. Surgical history: As per history of present illness and as reviewed below otherwise noncontributory. Social history: No reported history of drug or alcohol abuse. Family history: As per history of present illness and as reviewed below otherwise noncontributory. Physical exam: HEENT: Atraumatic, normocephalic, pupils reactive, negative for conjunctival pallor or scleral icterus, mucous membranes moist, throat clear, neck supple, nontender, trachea midline. Lungs: Clear to auscultation, breath sounds equal bilaterally, chest nontender. Heart: S1S2, regular, negative for clicks, rubs, or JVD. Abdomen: Soft, nondistended, nontender. Negative for masses or hepatosplenomegaly. Negative for costovertebral tenderness. Pelvis: Stable nontender. Genitourinary: Deferred. Rectal: Deferred. Extremities: Atraumatic, negative for cords or calf pain. Neurovascular unremarkable. Neuro: Awake, alert, oriented. Cranial nerves II through XII unremarkable. Cerebellum unremarkable. Motor and sensory unremarkable throughout. Exam nonfocal. Diagnostics: [cbc bmp ] ekg Therapeutics: [] Impression: medical screening exam] Definitive disposition and diagnosis as appropriate pending reevaluation and review of above. - Related Data Allergies Allergy/AdvReac Type Severity Reaction Status Date / Time No Known Allergies Allergy Verified 04/10/19 12:34 Home Meds: Home Meds Diclofenac Sodium [Voltaren] 100 mg PO ASDIRECTED 10/18/18 [History] Metoprolol Tartrate 25 mg PO BID 10/18/18 [History] Past Medical History Cardiovascular History: Reports: Aneurysm, Blood Clots/VTE/DVT, Hypertension, Stents Other Cardiovascular History: hx of blood clot behind knee-left leg, Respiratory History: Reports: Sleep Apnea Other Respiratory History: dose not use CPAP Gastrointestinal History: Reports: GERD Genitourinary History: Reports: BPH Musculoskeletal History: Reports: Arthritis Neurological History: Reports: CVA Other Neuro History: 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 Psychiatric History: Reports: None Endocrine/Metabolic History: Reports: None Hematologic History: Reports: Anemia, Blood Transfusion(s) Immunologic History: Reports: None Oncologic (Cancer) History: Reports: None Dermatologic History: Reports: None - Infectious Disease History Infectious Disease History: Reports: Shingles - Past Surgical History Head Surgeries/Procedures: Reports: None HEENT Surgical History: Reports: Tonsillectomy, Other (See Below) Other HEENT Surgeries/Procedures: Adnoids out at age 19 Cardiovascular Surgical History: Reports: Coronary Artery Stent Other Cardiovascular Surgeries/Procedures: thoracic aortic aneurysm repair with repair of aortic valve GI Surgical History: Reports: Colonoscopy, EGD, Hernia, Abdominal Musculoskeletal Surgical History: Reports: Arthroscopic Knee, Hip Replacement, Other (See Below) Other Musculoskeletal Surgeries/Procedures:: Left Foot with hardware, recent rt hip replacement (03/12/2018), left knee surgery, left hip replaced September 2018 Social & Family History - Family History Family Medical History: Noncontributory - Tobacco Use Smoking Status *Q: Never Smoker - Caffeine Use Caffeine Use: Reports: Other Other Caffeine Use: Excedrin - Recreational Drug Use Recreational Drug Use: No ED ROS GENERAL - Review of Systems Review Of Systems: See Below ED EXAM, GENERAL - Physical Exam Exam: See Below Course - Vital Signs Last Recorded V/S: Last Vital Signs Temp 98.0 F 04/10/19 12:36 Pulse 68 04/10/19 12:36 Resp 16 04/10/19 12:36 BP 129/79 04/10/19 12:36 Pulse Ox 97 04/10/19 12:36 - Orders/Labs/Meds Orders: Active Orders 24 hr Category Date Time Status EKG Documentation Completion [RC] STAT Care 04/10/19 12:34 Active Labs: Laboratory Tests 04/10/19 04/10/19 04/10/19 Range/Units 12:50 12:50 13:15 WBC 6.09 (4.0-11.0) K/uL RBC 4.16 L (4.50-5.90) M/uL Hgb 11.9 L (13.0-17.0) g/dL Hct 36.6 L (38.0-50.0) % MCV 88.0 (80.0-98.0) fL MCH 28.6 (27.0-32.0) pg MCHC 32.5 (31.0-37.0) g/dL RDW Std Deviation 62.0 (28.0-62.0) fl RDW Coeff of Jose Martin 19 H (11.0-15.0) % Plt Count 243 (150-400) K/uL MPV 9.50 (7.40-12.00) fL Neut % (Auto) 45.6 L (48.0-80.0) % Lymph % (Auto) 36.3 (16.0-40.0) % [place] % (Auto) 8.7 (0.0-15.0) % Eos % (Auto) 8.9 H (0.0-7.0) % Baso % (Auto) 0.5 (0.0-1.5) % Neut # (Auto) 2.8 (1.4-5.7) K/uL Lymph # (Auto) 2.2 (0.6-2.4) K/uL [place] # (Auto) 0.5 (0.0-0.8) K/uL Eos # (Auto) 0.5 (0.0-0.7) K/uL Baso # (Auto) 0.0 (0.0-0.1) K/uL Nucleated RBC % 0.0 /100WBC Nucleated RBCs # 0 K/uL Sodium 138 (136-148) mmol/L Potassium 5.1 (3.5-5.1) mmol/L Chloride 105 (98-107) mmol/L Carbon Dioxide 23.9 (21.0-32.0) mmol/L BUN 31 H (7.0-18.0) mg/dL Creatinine 1.6 H (0.8-1.3) mg/dL Est Cr Clr Drug Dosing 51.32 mL/min Estimated GFR (MDRD) 43.5 ml/min Glucose 117 H (74-106) mg/dL Calcium 9.1 (8.5-10.1) mg/dL Troponin I < 0.050 (0.000-0.056) ng/mL Urine Color YELLOW Urine Appearance CLEAR Urine pH 6.0 (5.0-8.0) Ur Specific [place] 1.010 (1.001-1.035) Urine Protein NEGATIVE (NEGATIVE) mg/dL Urine Glucose (UA) NEGATIVE (NEGATIVE) mg/dL Urine Ketones NEGATIVE (NEGATIVE) mg/dL Urine Occult Blood NEGATIVE (NEGATIVE) Urine Nitrite NEGATIVE (NEGATIVE) Urine Bilirubin NEGATIVE (NEGATIVE) Urine Urobilinogen 0.2 (<2.0) EU/dL Ur Leukocyte Esterase NEGATIVE (NEGATIVE) Departure - Departure Time of Disposition: 13:54 Disposition: Home, Self-Care 01 Condition: Good Clinical Impression: Encounter for medical screening examination - Discharge Information Referrals: Michoacano Croft MD [Primary Care Provider] - Forms: ED Department Discharge Additional Instructions: The following information is given to patients seen in the emergency department who are being discharged to home. This information is to outline your options for follow-up care. We provide all patients seen in our emergency department with a follow-up referral. The need for follow-up, as well as the timing and circumstances, are variable depending upon the specifics of your emergency department visit. If you don't have a primary care physician on staff, we will provide you with a referral. We always advise you to contact your personal physician following an emergency department visit to inform them of the circumstance of the visit and for follow-up with them and/or the need for any referrals to a consulting specialist. The emergency department will also refer you to a specialist when appropriate. This referral assures that you have the opportunity for follow-up care with a specialist. All of these measure are taken in an effort to provide you with optimal care, which includes your follow-up. Under all circumstances we always encourage you to contact your private physician who remains a resource for coordinating your care. When calling for follow-up care, please make the office aware that this follow-up is from your recent emergency room visit. If for any reason you are refused follow-up, please contact the [facility] emergency department at and asked to speak to the emergency department charge nurse. Sepsis Event Note - Evaluation Sepsis Screening Result: No Definite Risk - Focused Exam Vital Signs: Vital Signs Temp Pulse Resp BP Pulse Ox 04/10/19 12:36 98.0 F 68 16 129/79 97 Date Exam was Performed: 04/10/19 Time Exam was Performed: 13:52 - My Orders Last 24 Hours: My Active Orders 04/10/19 12:34 EKG Documentation Completion [RC] STAT - Assessment/Plan Last 24 Hours: My Active Orders 04/10/19 12:34 EKG Documentation Completion [RC] STAT
[2019-04-10 13:39] LABS: BLOOD UREA NITROGEN,BUN 31 mg/dL (7.0-18.0); CARBON DIOXIDE,CO2 23.9 mmol/L (21.0-32.0); CHLORIDE,CL 105 mmol/L (98-107); GLUCOSE RANDOM 117 mg/dL (74-106); POTASSIUM,K 5.1 mmol/L (3.5-5.1); SODIUM,NA 138 mmol/L (136-148)
== END 2019-04-10 14:08 | disposition home or self-care (01) ==
LOC: MW.ED 12:21
DX: Z13.89 Encounter for screening for other disorder (principal); I10 Essential (primary) hypertension; Z79.899 Other long term (current) drug therapy; Z86.73 Personal history of transient ischemic attack (TIA), and cerebral infarction without residual deficits
CPT/HCPCS: 36415; 80048; 81003; 84484; 85025; 93005; 99282; 99285-25

== ENCOUNTER 2020-07-25 17:59 | Emergency (ER) | payer MEDICARE, OTHER ==
[2020-07-25] MEDS ORDERED: Sodium Chloride 0.9% 10 ML Syringe FLUSH PRN (18:52)
[2020-07-25] MEDS ORDERED: Sodium Chloride 0.9% 2.5 ML Syringe FLUSH PRN (18:52)
[2020-07-25] MEDS ORDERED: Sodium Chloride 0.9% 1,000 ML IV ONE (19:20)
[2020-07-25] MEDS ORDERED: Pantoprazole 80 MG in Sodium Chloride 0.9% 20 ML IVPUSH ONE (19:21)
[2020-07-25 20:11] LABS: CARBON DIOXIDE,CO2 23.8 mmol/L (21.0-32.0); POTASSIUM,K 5.1 mmol/L (3.5-5.1)
[2020-07-25 20:14] LABS: LIPASE 266 U/L (73-393)
--- NOTE | 2020-07-25 22:17 | EDM.PDOC ---
ED HPI GENERAL MEDICAL PROBLEM - General Chief Complaint: General Stated Complaint: [facility] REFERRAL Time Seen by Provider: 07/25/20 18:16 Source of Information: Reports: Patient History Limitations: Reports: No Limitations - History of Present Illness INITIAL COMMENTS - FREE TEXT/NARRATIVE: HISTORY AND PHYSICAL: History of present illness: Patient is a 65-year-old male who presents emergency room today with concern of a low hemoglobin level and near syncopal episodes that have increased over the past 1 week. Patient states he has a history of stomach ulcers in the past and he has had dark stools over the past 1 week. Patient states that the dark stools have now resolved over the past 2 days and he has now had "brown stools "again. Patient states that he went to his primary care provider today and had lab work done because he has been feeling short of breath and having near syncopal episodes and is unable to walk partway across the room without feeling like he is going to pass out. Patient states that he had lab work done with his primary care provider and was sent home and was called a few hours later to come to the emergency room to receive blood. Patient states that he typically "chews Excedrin "a couple times a day due to chronic arthritic pain and has had multiple EGDs and colonoscopies in the past and was told that he had stomach ulcers related to the Excedrin and was told to stop taking this. Patient states that he is continue to take the Excedrin regardless because this is what works for him. Patient denies fever, chills, chest pain, or cough. Denies headache, neck stiff ness, change in vision. Denies nausea, vomiting, abdominal pain, diarrhea, constipation, or dysuria. Has not noted any blood in urine or stool. Patient has been eating and drinking appropriately. Review of systems: As per history of present illness and below otherwise all systems reviewed and negative. Past medical history: As per history of present illness and as reviewed below otherwise noncontributory. Surgical history: As per history of present illness and as reviewed below otherwise noncontributory. Social history: See social history for further information Family history: As per history of present illness and as reviewed below otherwise noncontributory. Physical exam: General: Patient is alert, oriented, and in no acute distress. Patient laying comfortably on exam table. Vitals stable and reviewed by me HEENT: Atraumatic, normocephalic, pupils equal and reactive bilaterally, negative for conjunctival pallor or scleral icterus, mucous membranes moist, TMs normal bilaterally, throat clear, neck supple, nontender, trachea midline. No drooling or trismus noted. No meningeal signs. No hot potato voice noted. Lungs: Clear to auscultation, breath sounds equal bilaterally, chest nontender. Heart: S1S2, regular rate and rhythm without overt murmur Abdomen: Soft, nondistended, nontender. Negative for masses or hepatosplenomegaly. Negative for costovertebral tenderness. Pelvis: Stable nontender. Genitourinary: Deferred. Rectal: Patient Observation Assistant at bedside Glendy Murillo RN. External genitalia grossly unremarkable. No hemorrhoids, lesions, fissures, or masses noted. Hemoccult negative. No gross blood. Stool brown in color Skin: Intact, warm, dry. No lesions or rashes noted. Extremities: Atraumatic, negative for cords or calf pain. Neurovascular unremarkable. Neuro: Awake, alert, oriented. Cranial nerves II through XII unremarkable. Cerebellum unremarkable. Motor and sensory unremarkable throughout. Exam nonfocal. Notes: Patient is a 65-year-old male who presents emergency room today secondary to near syncopal episodes and concern for low hemoglobin diagnosed by his primary care provider today. Patient has had a remote history of black stools which has resolved 2 days ago. Upon arrival to the ED, patient is vitally stable and well-appearing. On exam, Hemoccult is negative and no gross blood on exam. Will perform cardiac evaluation. See Dr. Maier dictation for specific EKG interpretation. Otherwise, normal sinus rhythm heart rate of 60 with no evidence of ST elevation or ischemic changes CBC is remarkable for low hgb 8.3 with microcytic indices. RBC 3.09, hct 26. CMP shows elevated creatinine at 2.2 (mild elevation on past labwork of 1.6) with BUN low at 1. Corrected calcium 8.4. UA shows trace leuk with 0-2WBC, 0 RBC. Interpretation: Negative for infection. Chest x-ray shows no significant change. No active disease. Lab work indicates that patient is anemic with a hemoglobin of 8.3, although does not meet immediate transfusion requirements by numeric value; however, patient is quite symptomatic given his low hemoglobin with near syncopal events, exertional dyspnea, and is unable to walk across the room without feeling short of breath, will type and cross/screen with plan to transfuse 1 uPRBC due to severe symptomatic anemia. I did call and speak to Dr. Yeh, and thoroughly discussed patient's case, and will admit to observation on telemetry. Nursing staff went to perform the Covid swab for admission, and patient adamantly requests to leave the ED as he does not believe in COVID-19 and would like to leave at the thought of having to be swabbed without receiving PRBCs. I did not have the opportunity to speak with patient as he left the ED AMA prior to me explaining all risks vs benefits of leaving the ED AMA. Diagnostics: CBC, CMP, UA, EKG, chest x-ray, troponin, Hemoccult, type/screen/cross Therapeutics: NS, Protonix (Patient left AMA prior to receiving 1UPRBC) Impression: Symptomatic Anemia Elevated renal function testing Left against medical advice Plan: Patient left the ED AMA Definitive disposition and diagnosis as appropriate pending reevaluation and review of above. Abdomen Pain Score (Numeric/FACES): 5 - Related Data Allergies Allergy/AdvReac Type Severity Reaction Status Date / Time No Known Allergies Allergy Verified 04/10/19 12:34 Home Meds: Home Meds Diclofenac Sodium [Voltaren] 100 mg PO ASDIRECTED 10/18/18 [History] Metoprolol Tartrate 25 mg PO BID 10/18/18 [History] Hydrocodone/Acetaminophen [Hydrocodone-Acetamin 7.5-325] 1 tab PO ASDIRECTED PRN 07/25/20 [History] Pantoprazole [ProTONIX] 40 mg PO ASDIRECTED PRN 07/25/20 [History] Past Medical History Cardiovascular History: Reports: Aneurysm, Blood Clots/VTE/DVT, Hypertension, Stents Other Cardiovascular History: hx of blood clot behind knee-left leg, Respiratory History: Reports: Sleep Apnea Other Respiratory History: dose not use CPAP Gastrointestinal History: Reports: GERD, Other (See Below) Genitourinary History: Reports: BPH Musculoskeletal History: Reports: Arthritis Neurological History: Reports: CVA Other Neuro History: stroke 8 years ago Psychiatric History: Reports: None Endocrine/Metabolic History: Reports: None Hematologic History: Reports: Anemia, Blood Transfusion(s) Immunologic History: Reports: None Oncologic (Cancer) History: Reports: None Dermatologic History: Reports: None - Infectious Disease History Infectious Disease History: Reports: Shingles - Past Surgical History Head Surgeries/Procedures: Reports: None HEENT Surgical History: Reports: Tonsillectomy, Other (See Below) Other HEENT Surgeries/Procedures: Adnoids out at age 19 Cardiovascular Surgical History: Reports: Coronary Artery Stent Other Cardiovascular Surgeries/Procedures: thoracic aortic aneurysm repair with repair of aortic valve GI Surgical History: Reports: Colonoscopy, EGD, Hernia, Abdominal, Other (See Below) Other GI Surgeries/Procedures: perferations from upper GI's Musculoskeletal Surgical History: Reports: Arthroscopic Knee, Hip Replacement, Other (See Below) Other Musculoskeletal Surgeries/Procedures:: Left Foot with hardware, recent rt hip replacement (03/12/2018), left knee surgery, left hip replaced September 2018 Social & Family History - Family History Family Medical History: No Pertinent Family History - Tobacco Use Tobacco Use Status *Q: Never Tobacco User Second Hand Smoke Exposure: No - Caffeine Use Caffeine Use: Reports: None Other Caffeine Use: Excedrin - Recreational Drug Use Recreational Drug Use: No ED ROS GENERAL - Review of Systems Review Of Systems: Comprehensive ROS is negative, except as noted in HPI. ED EXAM, GENERAL - Physical Exam Exam: See Below (see dictation) Course - Vital Signs Last Recorded V/S: Last Vital Signs Temp 97.6 F 07/25/20 18:00 Pulse 63 07/25/20 19:42 Resp 16 07/25/20 19:42 BP 150/79 H 07/25/20 19:42 Pulse Ox 94 L 07/25/20 19:42 - Orders/Labs/Meds Orders: Active Orders 24 hr Category Date Time Status Admission Status [Patient Status] [ADT] Stat ADT 07/25/20 22:17 Active CULTURE URINE [RM] Stat Lab 07/25/20 21:16 Received Saline Lock Insert [OM.PC] Stat Oth 07/25/20 18:52 Ordered Transfuse Red Blood Cells [COMM] Stat Oth 07/25/20 22:07 Ordered Labs: Laboratory Tests 07/25/20 07/25/20 07/25/20 Range/Units 19:20 19:20 19:20 WBC 8.25 (4.0-11.0) K/uL RBC 3.09 L (4.50-5.90) M/uL Hgb 8.3 L (13.0-17.0) g/dL Hct 26.0 L (38.0-50.0) % MCV 84.1 (80.0-98.0) fL MCH 26.9 L (27.0-32.0) pg MCHC 31.9 (31.0-37.0) g/dL RDW Std Deviation 52.1 (28.0-62.0) fl RDW Coeff of Jose Martin 17 H (11.0-15.0) % Plt Count 272 (150-400) K/uL MPV 9.30 (7.40-12.00) fL Neut % (Auto) 52.2 (48.0-80.0) % Lymph % (Auto) 34.9 (16.0-40.0) % Cottle % (Auto) 7.0 (0.0-15.0) % Eos % (Auto) 5.8 (0.0-7.0) % Baso % (Auto) 0.1 (0.0-1.5) % Neut # (Auto) 4.3 (1.4-5.7) K/uL Lymph # (Auto) 2.9 H (0.6-2.4) K/uL Cottle # (Auto) 0.6 (0.0-0.8) K/uL Eos # (Auto) 0.5 (0.0-0.7) K/uL Baso # (Auto) 0.0 (0.0-0.1) K/uL Nucleated RBC % 0.0 /100WBC Nucleated RBCs # 0 K/uL Sodium 140 (136-148) mmol/L Potassium 5.1 (3.5-5.1) mmol/L Chloride 105 (98-107) mmol/L Carbon Dioxide 23.8 (21.0-32.0) mmol/L BUN 1 L (7.0-18.0) mg/dL Creatinine 2.2 H (0.8-1.3) mg/dL Est Cr Clr Drug Dosing 37.88 mL/min Estimated GFR (MDRD) 30.0 ml/min Glucose 95 (74-106) mg/dL Calcium 8.2 L (8.5-10.1) mg/dL Total Bilirubin 0.2 (0.2-1.0) mg/dL AST 30 (15-37) IU/L ALT 46 (14-63) IU/L Alkaline Phosphatase 74 (46-116) U/L Troponin I < 0.050 (0.000-0.056) ng/mL Total Protein 6.3 L (6.4-8.2) g/dL Albumin 3.2 L (3.4-5.0) g/dL Globulin 3.1 (2.6-4.0) g/dL Albumin/Globulin Ratio 1.0 (0.9-1.6) Lipase 266 (73-393) U/L Urine Color Urine Appearance Urine pH (5.0-8.0) Ur Specific Maybell (1.001-1.035) Urine Protein (NEGATIVE) mg/dL Urine Glucose (UA) (NEGATIVE) mg/dL Urine Ketones (NEGATIVE) mg/dL Urine Occult Blood (NEGATIVE) Urine Nitrite (NEGATIVE) Urine Bilirubin (NEGATIVE) Urine Urobilinogen (<2.0) EU/dL Ur Leukocyte Esterase (NEGATIVE) Urine RBC (0-2/HPF) Urine WBC (0-5/HPF) Ur Epithelial Cells (NONE-FEW) Urine Bacteria (NEGATIVE) Urine Mucus (NONE-MOD) Blood Type Antibody Screen Crossmatch 07/25/20 07/25/20 Range/Units 21:16 22:12 WBC (4.0-11.0) K/uL RBC (4.50-5.90) M/uL Hgb (13.0-17.0) g/dL Hct (38.0-50.0) % MCV (80.0-98.0) fL MCH (27.0-32.0) pg MCHC (31.0-37.0) g/dL RDW Std Deviation (28.0-62.0) fl RDW Coeff of Jose Martin (11.0-15.0) % Plt Count (150-400) K/uL MPV (7.40-12.00) fL Neut % (Auto) (48.0-80.0) % Lymph % (Auto) (16.0-40.0) % Cottle % (Auto) (0.0-15.0) % Eos % (Auto) (0.0-7.0) % Baso % (Auto) (0.0-1.5) % Neut # (Auto) (1.4-5.7) K/uL Lymph # (Auto) (0.6-2.4) K/uL Cottle # (Auto) (0.0-0.8) K/uL Eos # (Auto) (0.0-0.7) K/uL Baso # (Auto) (0.0-0.1) K/uL Nucleated RBC % /100WBC Nucleated RBCs # K/uL Sodium (136-148) mmol/L Potassium (3.5-5.1) mmol/L Chloride (98-107) mmol/L Carbon Dioxide (21.0-32.0) mmol/L BUN (7.0-18.0) mg/dL Creatinine (0.8-1.3) mg/dL Est Cr Clr Drug Dosing mL/min Estimated GFR (MDRD) ml/min Glucose (74-106) mg/dL Calcium (8.5-10.1) mg/dL Total Bilirubin (0.2-1.0) mg/dL AST (15-37) IU/L ALT (14-63) IU/L Alkaline Phosphatase (46-116) U/L Troponin I (0.000-0.056) ng/mL Total Protein (6.4-8.2) g/dL Albumin (3.4-5.0) g/dL Globulin (2.6-4.0) g/dL Albumin/Globulin Ratio (0.9-1.6) Lipase (73-393) U/L Urine Color YELLOW Urine Appearance CLEAR Urine pH 5.0 (5.0-8.0) Ur Specific Maybell 1.020 (1.001-1.035) Urine Protein NEGATIVE (NEGATIVE) mg/dL Urine Glucose (UA) NEGATIVE (NEGATIVE) mg/dL Urine Ketones NEGATIVE (NEGATIVE) mg/dL Urine Occult Blood NEGATIVE (NEGATIVE) Urine Nitrite NEGATIVE (NEGATIVE) Urine Bilirubin NEGATIVE (NEGATIVE) Urine Urobilinogen 0.2 (<2.0) EU/dL Ur Leukocyte Esterase TRACE H (NEGATIVE) Urine RBC NONE SEEN (0-2/HPF) Urine WBC 0-2 (0-5/HPF) Ur Epithelial Cells RARE (NONE-FEW) Urine Bacteria FEW (NEGATIVE) Urine Mucus LIGHT (NONE-MOD) Blood Type A POSITIVE Antibody Screen NEGATIVE Crossmatch See Detail Meds: Medications Discontinued Medications Generic Name Dose Route Start Last Admin Trade Name Freq PRN Reason Stop Dose Admin Sodium Chloride 1,000 mls @ 999 mls/hr 07/25/20 19:20 07/25/20 19:39 Normal Saline IV 07/25/20 20:20 999 mls/hr BOLUS ONE Administration Pantoprazole Sodium 80 mg/ 20 mls @ 420 mls/hr 07/25/20 19:21 07/25/20 19:39 Sodium Chloride IVPUSH 07/25/20 19:23 420 mls/hr ONETIME ONE Administration Sodium Chloride 10 ml 07/25/20 18:52 07/25/20 19:39 Sodium Chloride 0.9% 10 Ml Syringe FLUSH 10 ml ASDIRECTED PRN Administration Keep Vein Open Sodium Chloride 2.5 ml 07/25/20 18:52 07/25/20 19:39 Sodium Chloride 0.9% 2.5 Ml Syringe FLUSH 2.5 ml ASDIRECTED PRN Administration Keep Vein Open Departure - Departure Time of Disposition: 21:00 Disposition: Against Medical Advice 07 Clinical Impression: Symptomatic anemia, Renal function test abnormal, Left against medical advice - Discharge Information Referrals: Michoacano Croft MD [Primary Care Provider] - Forms: ED Department Discharge Additional Instructions: Patient with the ED AMA Sepsis Event Note (ED) - Evaluation Sepsis Screening Result: No Definite Risk - My Orders Last 24 Hours: My Active Orders 07/25/20 18:52 Saline Lock Insert [OM.PC] Stat 07/25/20 21:16 CULTURE URINE [RM] Stat 07/25/20 22:07 Transfuse Red Blood Cells [COMM] Stat 07/25/20 22:17 Admission Status [Patient Status] [ADT] Stat - Assessment/Plan Last 24 Hours: My Active Orders 07/25/20 18:52 Saline Lock Insert [OM.PC] Stat 07/25/20 21:16 CULTURE URINE [RM] Stat 07/25/20 22:07 Transfuse Red Blood Cells [COMM] Stat 07/25/20 22:17 Admission Status [Patient Status] [ADT] Stat
--- NOTE | 2020-07-25 23:25 | CR ---
INDICATION: Chest pain and SOB. TECHNIQUE: Upright portable AP image of the chest. COMPARISON: 10/17/2018. FINDINGS: No significant change when lungs and pleural spaces clear. Calcified granuloma in the mid left lung. Sternal wires. Heart, mediastinum and pulmonary vessels normal. No significant osseous abnormality. IMPRESSION: No significant change. No active disease. Dictated by Raheel Dominguez MD @ 07/25/2020 11:24:[address] Raheel Dominguez @ Jul 25 2020 11:24PM
--- NOTE | 2020-07-26 02:50 | PCM.EKG ---
#1 Interpretation EKG Interpretation Comments: EKG: As interpreted by ER physician: Livier: Nonspecific ST-T wave abnormalities Normal axis No evidence of ST elevation MN Normal sinus rhythm heart rate of 60
== END 2020-07-25 23:10 | disposition left against medical advice (07) ==
LOC: MW.ED 17:59
DX: D64.9 Anemia, unspecified (principal); R94.4 Abnormal results of kidney function studies; K21.9 Gastro-esophageal reflux disease without esophagitis; Z86.73 Personal history of transient ischemic attack (TIA), and cerebral infarction without residual deficits; Z79.899 Other long term (current) drug therapy
CPT/HCPCS: 36415; 71045; 80053; 81001; 83690; 84484; 85025; 86850; 86900; 86901; 86920; 86921; 86922; 87086; 93005; 96374; 99284; C9113; J7030

== ENCOUNTER 2022-12-12 17:44 | Emergency (ER) | payer MEDICARE, OTHER ==
[2022-12-12 18:43] LABS: CORONAVIRUS COVID-19 NAA NEGATIVE (NEGATIVE); INFLUENZA A NAA NEGATIVE (NEGATIVE); INFLUENZA B NAA NEGATIVE (NEGATIVE)
[2022-12-12] MEDS ORDERED: Sodium Chloride 0.9% 10 ML Syringe FLUSH PRN (18:48)
[2022-12-12] MEDS ORDERED: Sodium Chloride 0.9% 2.5 ML Syringe FLUSH PRN (18:48)
[2022-12-12] MEDS ORDERED: Sodium Chloride 0.9% 1,000 ML IV STA ×2 (18:50→21:23)
[2022-12-12 19:20] LABS: BASOPHILS ABSOLUTE AUTO 0.03 K/uL (0.00-0.20); BASOPHILS PERCENT AUTO 0.3 % (0.0-1.0); EOSINOPHILS ABSOLUTE AUTO 0.05 K/uL (0.00-0.45); EOSINOPHILS PERCENT AUTO 0.5 % (0.0-6.0); HEMATOCRIT 33.6 % (42.0-52.0); HEMOGLOBIN 11.3 g/dL (14.0-18.0); LYMPHOCYTES ABSOLUTE AUTO 1.79 K/uL (1.00-4.80); LYMPHOCYTES PERCENT AUTO 18.4 % (24.0-44.0); MEAN CORPUSCULAR HEMOGLOBIN 28.9 pg (28.0-32.0); MEAN CORPUSCULAR HGB CONC 33.6 g/dL (32.0-36.0); MEAN CORPUSCULAR VOLUME 85.9 fL (83.0-99.0); MEAN PLATELET VOLUME 9.2 fL (9.4-12.4); MONOCYTES ABSOLUTE AUTO 1.17 K/uL (0.00-0.80); NEUTROPHILS ABSOLUTE AUTO 6.6 K/uL (1.8-7.7); NEUTROPHILS PERCENT AUTO 68.4 % (41.0-71.0); PLATELET COUNT,PLT 326 K/uL (150-400); RED BLOOD CELL COUNT 3.91 M/uL (4.52-5.90); WHITE BLOOD CELL COUNT,WBC 9.72 K/uL (3.9-11.3)
[2022-12-12 19:46] LABS: A/G RATIO 0.6 (0.9-1.6); ALBUMIN 2.6 g/dL (3.4-5.0); BILIRUBIN TOTAL 0.9 mg/dL (0.2-1.0); CALCIUM 8.9 mg/dL (8.5-10.1); CARBON DIOXIDE,CO2 21.3 mmol/L (21.0-32.0); CREATININE 1.5 mg/dL (0.8-1.3); EST CRCL DRUG DOSING (CG) 51.01 mL/min; MAGNESIUM 1.6 mg/dL (1.8-2.4); POTASSIUM,K 4.2 mmol/L (3.5-5.1); PROTEIN TOTAL,TP 7.2 g/dL (6.4-8.2)
[2022-12-12 19:59] LABS: APPEARANCE,URINE CLEAR; COLOR,URINE YELLOW; GLUCOSE,URINE NEGATIVE (NEGATIVE); KETONES,URINE 15 mg/dL (NEGATIVE); LEUKOCYTE ESTERASE,URINE NEGATIVE (NEGATIVE); NITRITE,URINE NEGATIVE (NEGATIVE); OCCULT BLOOD,URINE NEGATIVE (NEGATIVE); PROTEIN,URINE 30 mg/dL (NEGATIVE)
[2022-12-12 20:04] LABS: BILIRUBIN,URINE SMALL (NEGATIVE)
[2022-12-12 20:21] LABS: AMORPHOUS SEDIMENT,URINE LIGHT (NEGATIVE); BACTERIA,URINE FEW (NEGATIVE); EPITHELIAL CELLS,URINE OCCASIONAL (NONE-FEW); RBC,URINE 0-2 (0-2/HPF); WBC,URINE 0-2 (0-5/HPF)
[2022-12-12 21:02] LABS: PERCENT FE SATURATION 7.69 % (20-55)
[2022-12-12] MEDS ORDERED: Acetaminophen 500 MG Tab PO STA (21:19)
[2022-12-12] MEDS ORDERED: Magnesium Sulfate/Water 2 GM in Premix Bag 1 BAG IV STA (21:20)
[2022-12-12] MEDS ORDERED: Cefepime 2 GM Vial IVPUSH STA (21:41)
[2022-12-12] MEDS ORDERED: Iopamidol 755 MG/ML 500 ML Multipack Bottle IVPUSH ONE (21:56)
[2022-12-12] MEDS ORDERED: VANCOmycin 2 GM/400 ML 2 GM in Premix Bag 1 BAG IV ONE (22:00)
[2022-12-12 22:17] LABS: INR 1.17 (0.86-1.11)
== END 2022-12-13 01:00 | disposition home or self-care (01) ==
LOC: MW.ED 17:44
DX: E83.42 Hypomagnesemia (principal); D50.8 Other iron deficiency anemias; K86.89 Other specified diseases of pancreas; R63.0 Anorexia; I12.9 Hypertensive chronic kidney disease with stage 1 through stage 4 chronic kidney disease, or unspecified chronic kidney disease; N18.31 Chronic kidney disease, stage 3a; K21.9 Gastro-esophageal reflux disease without esophagitis; Z20.822 Contact with and (suspected) exposure to COVID-19; Z79.899 Other long term (current) drug therapy
CPT/HCPCS: 0240U; 36415; 71260; 74177; 80053; 81001; 82728; 83550; 83605; 83690; 83735; 84443; 84484; 85025; 85610; 85652; 86140; 86308; 86850; 86900; 86901; 87040; 87077; 87154; 87186; 93005; 96361; 96365; 96366; 96367; 96375; 99285; A9270; J0692; J3370; J3475; J3490; J7030; Q9967; 93010; 99284

== ENCOUNTER 2022-12-14 14:52 | Inpatient (IN) | payer MEDICARE, OTHER ==
[2022-12-14] MEDS ORDERED: Sodium Chloride 0.9% 10 ML Syringe FLUSH PRN (15:28)
[2022-12-14] MEDS ORDERED: Sodium Chloride 0.9% 2.5 ML Syringe FLUSH PRN (15:28)
[2022-12-14] MEDS ORDERED: Lactated Ringers 1,000 ML IV ONE (15:32)
[2022-12-14] MEDS ORDERED: Cefepime 2 GM Vial IVPUSH ONE (15:32)
[2022-12-14] MEDS ORDERED: Cefepime 2 GM in Sodium Chloride 0.9% 50 ML IV ONE (15:45)
[2022-12-14 16:03] LABS: BASOPHILS ABSOLUTE AUTO 0.02 K/uL (0.00-0.20); BASOPHILS PERCENT AUTO 0.3 % (0.0-1.0); EOSINOPHILS ABSOLUTE AUTO 0.28 K/uL (0.00-0.45); EOSINOPHILS PERCENT AUTO 3.5 % (0.0-6.0); HEMATOCRIT 31.5 % (42.0-52.0); HEMOGLOBIN 10.7 g/dL (14.0-18.0); LYMPHOCYTES ABSOLUTE AUTO 1.71 K/uL (1.00-4.80); LYMPHOCYTES PERCENT AUTO 21.5 % (24.0-44.0); MEAN CORPUSCULAR HEMOGLOBIN 29.1 pg (28.0-32.0); MEAN CORPUSCULAR VOLUME 85.6 fL (83.0-99.0); MEAN PLATELET VOLUME 9.2 fL (9.4-12.4); MONOCYTES ABSOLUTE AUTO 0.74 K/uL (0.00-0.80); MONOCYTES PERCENT AUTO 9.3 % (0.0-8.0); NEUTROPHILS ABSOLUTE AUTO 5.2 K/uL (1.8-7.7); NEUTROPHILS PERCENT AUTO 65.1 % (41.0-71.0); PLATELET COUNT,PLT 387 K/uL (150-400); RED BLOOD CELL COUNT 3.68 M/uL (4.52-5.90); WHITE BLOOD CELL COUNT,WBC 7.94 K/uL (3.9-11.3)
[2022-12-14] MEDS ORDERED: Sodium Chloride 0.9% 1,000 ML IV ONE (16:08)
[2022-12-14] MEDS ORDERED: VANCOmycin 2 GM/400 ML 2 GM in Premix Bag 1 BAG IV ONE (16:15)
[2022-12-14 16:29] LABS: A/G RATIO 0.6 (0.9-1.6); ALBUMIN 2.6 g/dL (3.4-5.0); BILIRUBIN TOTAL 0.6 mg/dL (0.2-1.0); C-REACTIVE PROTEIN 15.1 mg/dL (<0.3); CALCIUM 8.8 mg/dL (8.5-10.1); CARBON DIOXIDE,CO2 21.5 mmol/L (21.0-32.0); CREATININE 1.1 mg/dL (0.8-1.3); EST CRCL DRUG DOSING (CG) 69.57 mL/min; PROTEIN TOTAL,TP 6.9 g/dL (6.4-8.2)
[2022-12-14 16:36] LABS: LACTIC ACID 0.9 mmol/L (0.4-2.0)
[2022-12-14 16:52] LABS: APPEARANCE,URINE CLEAR; GLUCOSE,URINE NEGATIVE (NEGATIVE); KETONES,URINE 40 mg/dL (NEGATIVE); LEUKOCYTE ESTERASE,URINE NEGATIVE (NEGATIVE); NITRITE,URINE NEGATIVE (NEGATIVE); OCCULT BLOOD,URINE NEGATIVE (NEGATIVE); PROTEIN,URINE TRACE mg/dL (NEGATIVE)
[2022-12-14 16:57] LABS: BILIRUBIN,URINE MODERATE (NEGATIVE)
[2022-12-14 16:58] LABS: COLOR,URINE DARK YELLOW
[2022-12-14 17:09] LABS: BACTERIA,URINE FEW (NEGATIVE); EPITHELIAL CELLS,URINE RARE (NONE-FEW); RBC,URINE 0-1 (0-2/HPF); WBC,URINE 0-1 (0-5/HPF)
[2022-12-14] MEDS ORDERED: Ondansetron 4 MG/2 ML SDV IVPUSH PRN (19:12)
[2022-12-14] MEDS ORDERED: Acetaminophen 325 MG Tab PO PRN (19:12)
[2022-12-14] MEDS ORDERED: Enoxaparin 40 MG/0.4 ML Syringe SUBCUT SCH (19:15)
[2022-12-14] MEDS: Metoprolol Tartrate 50 MG Tab PO SCH (23:24)
[2022-12-14] MEDS: Cefepime 2 GM in Sodium Chloride 0.9% 50 ML IV SCH (23:35)
[2022-12-14] MEDS: Sodium Chloride 0.9% 1,000 ML IV SCH (23:35)
[2022-12-15 06:22] LABS: BASOPHILS ABSOLUTE AUTO 0.03 K/uL (0.00-0.20); BASOPHILS PERCENT AUTO 0.4 % (0.0-1.0); EOSINOPHILS ABSOLUTE AUTO 0.38 K/uL (0.00-0.45); EOSINOPHILS PERCENT AUTO 5.1 % (0.0-6.0); HEMATOCRIT 31.7 % (42.0-52.0); HEMOGLOBIN 10.4 g/dL (14.0-18.0); LYMPHOCYTES ABSOLUTE AUTO 1.92 K/uL (1.00-4.80); LYMPHOCYTES PERCENT AUTO 25.6 % (24.0-44.0); MEAN CORPUSCULAR HEMOGLOBIN 28.7 pg (28.0-32.0); MEAN CORPUSCULAR HGB CONC 32.8 g/dL (32.0-36.0); MEAN CORPUSCULAR VOLUME 87.6 fL (83.0-99.0); MEAN PLATELET VOLUME 9.3 fL (9.4-12.4); MONOCYTES ABSOLUTE AUTO 0.79 K/uL (0.00-0.80); MONOCYTES PERCENT AUTO 10.5 % (0.0-8.0); NEUTROPHILS ABSOLUTE AUTO 4.4 K/uL (1.8-7.7); PLATELET COUNT,PLT 380 K/uL (150-400); RED BLOOD CELL COUNT 3.62 M/uL (4.52-5.90)
[2022-12-15] MEDS: Cefepime 2 GM in Sodium Chloride 0.9% 50 ML IV SCH ×3 (06:35→21:22)
[2022-12-15 07:24] LABS: A/G RATIO 0.6 (0.9-1.6); ALBUMIN 2.3 g/dL (3.4-5.0); BILIRUBIN TOTAL 0.7 mg/dL (0.2-1.0); CALCIUM 8.6 mg/dL (8.5-10.1); CARBON DIOXIDE,CO2 24.4 mmol/L (21.0-32.0); CREATININE 1.1 mg/dL (0.8-1.3); EST CRCL DRUG DOSING (CG) 69.57 mL/min; POTASSIUM,K 4.8 mmol/L (3.5-5.1); PROTEIN TOTAL,TP 6.4 g/dL (6.4-8.2)
[2022-12-15] MEDS: Apixaban 5 MG Tab PO SCH ×2 (08:48→21:22)
[2022-12-15] MEDS: Metoprolol Tartrate 50 MG Tab PO SCH ×2 (08:48→21:22)
[2022-12-15] MEDS ORDERED: Acetaminophen/HYDROcodone 325-5 MG Tab PO PRN (09:00)
[2022-12-15] MEDS: Sodium Chloride 0.9% 1,000 ML IV SCH (10:15)
[2022-12-15] MEDS ORDERED: Vancomycin 1 GM SDV ONE (18:56)
[2022-12-15] MEDS ORDERED: Sodium Chloride 0.9% 250 ML ONE (18:56)
[2022-12-15] MEDS ORDERED: Metoprolol Succinate 25 MG Tab.ER PO SCH (21:00)
[2022-12-16] MEDS: Cefepime 2 GM in Sodium Chloride 0.9% 50 ML IV SCH ×3 (05:38→23:06)
[2022-12-16 06:33] LABS: BASOPHILS ABSOLUTE AUTO 0.03 K/uL (0.00-0.20); BASOPHILS PERCENT AUTO 0.4 % (0.0-1.0); EOSINOPHILS PERCENT AUTO 4.8 % (0.0-6.0); HEMATOCRIT 31.1 % (42.0-52.0); HEMOGLOBIN 10.4 g/dL (14.0-18.0); IMMATURE GRAN ABSOLUTE AUTO 0.02 K/uL (0.00-0.05); IMMATURE GRAN PERCENT AUTO 0.2 % (0.0-0.4); LYMPHOCYTES PERCENT AUTO 21.4 % (24.0-44.0); MEAN CORPUSCULAR HEMOGLOBIN 29.1 pg (28.0-32.0); MEAN CORPUSCULAR HGB CONC 33.4 g/dL (32.0-36.0); MEAN CORPUSCULAR VOLUME 86.9 fL (83.0-99.0); MONOCYTES ABSOLUTE AUTO 0.72 K/uL (0.00-0.80); MONOCYTES PERCENT AUTO 8.6 % (0.0-8.0); NEUTROPHILS ABSOLUTE AUTO 5.4 K/uL (1.8-7.7); NEUTROPHILS PERCENT AUTO 64.6 % (41.0-71.0); PLATELET COUNT,PLT 404 K/uL (150-400); RED BLOOD CELL COUNT 3.58 M/uL (4.52-5.90); WHITE BLOOD CELL COUNT,WBC 8.41 K/uL (3.9-11.3)
[2022-12-16 07:26] LABS: A/G RATIO 0.6 (0.9-1.6); ALBUMIN 2.4 g/dL (3.4-5.0); BILIRUBIN TOTAL 0.6 mg/dL (0.2-1.0); CALCIUM 8.5 mg/dL (8.5-10.1); CARBON DIOXIDE,CO2 23.3 mmol/L (21.0-32.0); CREATININE 1.1 mg/dL (0.8-1.3); EST CRCL DRUG DOSING (CG) 69.57 mL/min; POTASSIUM,K 4.1 mmol/L (3.5-5.1); PROTEIN TOTAL,TP 6.4 g/dL (6.4-8.2)
[2022-12-16] MEDS: Metoprolol Tartrate 50 MG Tab PO SCH ×2 (09:42→20:19)
[2022-12-16] MEDS: Apixaban 5 MG Tab PO SCH ×2 (09:42→20:19)
[2022-12-17] MEDS: Cefepime 2 GM in Sodium Chloride 0.9% 50 ML IV SCH ×2 (06:29→14:22)
[2022-12-17 06:54] LABS: BASOPHILS ABSOLUTE AUTO 0.04 K/uL (0.00-0.20); BASOPHILS PERCENT AUTO 0.4 % (0.0-1.0); EOSINOPHILS ABSOLUTE AUTO 0.49 K/uL (0.00-0.45); HEMATOCRIT 32.1 % (42.0-52.0); HEMOGLOBIN 10.7 g/dL (14.0-18.0); IMMATURE GRAN ABSOLUTE AUTO 0.03 K/uL (0.00-0.05); IMMATURE GRAN PERCENT AUTO 0.3 % (0.0-0.4); LYMPHOCYTES ABSOLUTE AUTO 1.94 K/uL (1.00-4.80); LYMPHOCYTES PERCENT AUTO 19.7 % (24.0-44.0); MEAN CORPUSCULAR HEMOGLOBIN 28.8 pg (28.0-32.0); MEAN CORPUSCULAR HGB CONC 33.3 g/dL (32.0-36.0); MEAN CORPUSCULAR VOLUME 86.3 fL (83.0-99.0); MEAN PLATELET VOLUME 9.4 fL (9.4-12.4); MONOCYTES ABSOLUTE AUTO 0.82 K/uL (0.00-0.80); MONOCYTES PERCENT AUTO 8.3 % (0.0-8.0); NEUTROPHILS ABSOLUTE AUTO 6.5 K/uL (1.8-7.7); NEUTROPHILS PERCENT AUTO 66.3 % (41.0-71.0); PLATELET COUNT,PLT 443 K/uL (150-400); RED BLOOD CELL COUNT 3.72 M/uL (4.52-5.90); WHITE BLOOD CELL COUNT,WBC 9.86 K/uL (3.9-11.3)
[2022-12-17 07:21] LABS: A/G RATIO 0.6 (0.9-1.6); ALBUMIN 2.4 g/dL (3.4-5.0); BILIRUBIN TOTAL 0.5 mg/dL (0.2-1.0); CALCIUM 8.6 mg/dL (8.5-10.1); CARBON DIOXIDE,CO2 24.9 mmol/L (21.0-32.0); CREATININE 1.1 mg/dL (0.8-1.3); EST CRCL DRUG DOSING (CG) 69.57 mL/min; POTASSIUM,K 4.3 mmol/L (3.5-5.1); PROTEIN TOTAL,TP 6.4 g/dL (6.4-8.2)
[2022-12-17] MEDS: Metoprolol Tartrate 50 MG Tab PO SCH (08:15)
[2022-12-17] MEDS: Apixaban 5 MG Tab PO SCH (08:15)
[2022-12-17] MEDS ORDERED: Gadobenate Dimeglumine 529 MG/ML 20 ML SDV IVPUSH STA (12:22)
== END 2022-12-17 17:10 | disposition home or self-care (01) | DRG 872 ==
LOC: MW.ED 14:52 → MW.MS 18:31
PROVIDERS: ADMIT Family Medicine; ATTEND Family Medicine
DX: R78.81 Bacteremia (principal); I38 Endocarditis, valve unspecified; E86.0 Dehydration; I10 Essential (primary) hypertension; G89.29 Other chronic pain; F90.9 Attention-deficit hyperactivity disorder, unspecified type; B95.61 Methicillin susceptible Staphylococcus aureus infection as the cause of diseases classified elsewhere; R82.4 Acetonuria; Z86.718 Personal history of other venous thrombosis and embolism; G47.30 Sleep apnea, unspecified; K21.9 Gastro-esophageal reflux disease without esophagitis; Z96.649 Presence of unspecified artificial hip joint; M54.50 Low back pain, unspecified; N40.0 Benign prostatic hyperplasia without lower urinary tract symptoms; M19.90 Unspecified osteoarthritis, unspecified site; D64.9 Anemia, unspecified; Z98.1 Arthrodesis status; Z90.89 Acquired absence of other organs; Z95.5 Presence of coronary angioplasty implant and graft; Z86.73 Personal history of transient ischemic attack (TIA), and cerebral infarction without residual deficits; Z79.01 Long term (current) use of anticoagulants; Z79.899 Other long term (current) drug therapy; Z98.890 Other specified postprocedural states
CPT/HCPCS: 36415; 71046; 80053; 81001; 83605; 83690; 85025; 86140; 87040 ×2; 93005; 96365; 96367; 99285; J0692; J3370; J3490 ×2; J7030; 72158; 72158-26; 80202; 93010; 93306; 99223; 99232; 99233; 99239; A9270-GY; A9577; J7050

== ENCOUNTER 2023-10-12 20:01 | Emergency (ER) | payer BC, MEDICARE ==
[2023-10-12 21:13] LABS: BASOPHILS ABSOLUTE AUTO 0.03 K/uL (0.00-0.20); BASOPHILS PERCENT AUTO 0.4 % (0.0-1.0); EOSINOPHILS ABSOLUTE AUTO 0.17 K/uL (0.00-0.45); HEMATOCRIT 37.8 % (42.0-52.0); HEMOGLOBIN 12.1 g/dL (14.0-18.0); IMMATURE GRAN ABSOLUTE AUTO 0.02 K/uL (0.00-0.05); IMMATURE GRAN PERCENT AUTO 0.2 % (0.0-0.4); LYMPHOCYTES ABSOLUTE AUTO 2.22 K/uL (1.00-4.80); LYMPHOCYTES PERCENT AUTO 26.2 % (24.0-44.0); MEAN CORPUSCULAR HEMOGLOBIN 27.7 pg (28.0-32.0); MEAN CORPUSCULAR VOLUME 86.5 fL (83.0-99.0); MEAN PLATELET VOLUME 10.8 fL (9.4-12.4); MONOCYTES ABSOLUTE AUTO 1.21 K/uL (0.00-0.80); MONOCYTES PERCENT AUTO 14.3 % (0.0-8.0); NEUTROPHILS ABSOLUTE AUTO 4.81 K/uL (1.80-7.70); NEUTROPHILS PERCENT AUTO 56.9 % (41.0-71.0); PLATELET COUNT,PLT 165 K/uL (150-400); RED BLOOD CELL COUNT 4.37 M/uL (4.52-5.90); WHITE BLOOD CELL COUNT,WBC 8.46 K/uL (3.9-11.3)
[2023-10-12 21:23] LABS: A/G RATIO 0.8 (0.9-1.6); ALBUMIN 3.2 g/dL (3.4-5.0); BILIRUBIN TOTAL 1.1 mg/dL (0.2-1.0); CALCIUM 9.6 mg/dL (8.5-10.1); CARBON DIOXIDE,CO2 24.2 mmol/L (21.0-32.0); CREATININE 1.6 mg/dL (0.8-1.3); EST CRCL DRUG DOSING (CG) 47.15 mL/min; MAGNESIUM 1.8 mg/dL (1.8-2.4); POTASSIUM,K 4.6 mmol/L (3.5-5.1); PROTEIN TOTAL,TP 7.2 g/dL (6.4-8.2)
[2023-10-12] MEDS: Sodium Chloride 0.9% 2.5 ML Syringe FLUSH PRN (21:40)
[2023-10-12] MEDS: cefTRIAXone 1 GM in Sodium Chloride 0.9% 50 ML IV ONE (21:40)
[2023-10-12] MEDS: Sodium Chloride 0.9% 10 ML Syringe FLUSH PRN (21:40)
[2023-10-12] MEDS: Sodium Chloride 0.9% 1,000 ML IV ONE (21:40)
[2023-10-12 22:02] LABS: BASE EXCESS VENOUS 0.5 (-2.0-3.0); BICARBONATE,VENOUS 25 mEQ/mL (22-28); PCO2 VENOUS 39 mmHG (41-51); PH,VENOUS 7.41 (7.31-7.41)
[2023-10-12 22:03] LABS: APPEARANCE,URINE CLEAR; BILIRUBIN,URINE NEGATIVE (NEGATIVE); COLOR,URINE YELLOW; GLUCOSE,URINE NEGATIVE (NEGATIVE); KETONES,URINE TRACE mg/dL (NEGATIVE); LEUKOCYTE ESTERASE,URINE NEGATIVE (NEGATIVE); NITRITE,URINE NEGATIVE (NEGATIVE); OCCULT BLOOD,URINE NEGATIVE (NEGATIVE); PROTEIN,URINE NEGATIVE (NEGATIVE)
[2023-10-12 22:04] LABS: PO2 VENOUS < 30 mmHG (35-45)
[2023-10-12 22:47] LABS: LACTIC ACID 0.8 mmol/L (0.4-2.0)
[2023-10-12] MEDS ORDERED: Iopamidol 755 MG/ML 500 ML Multipack Bottle IVPUSH STA (23:31)
[2023-10-12] MEDS: Acetaminophen/HYDROcodone 325-10 MG Tab PO STA (23:52)
== END 2023-10-13 04:26 | disposition home or self-care (01) ==
LOC: MW.ED 20:01
DX: N20.0 Calculus of kidney (principal); G89.29 Other chronic pain; M54.50 Low back pain, unspecified; K21.9 Gastro-esophageal reflux disease without esophagitis; Z79.899 Other long term (current) drug therapy
CPT/HCPCS: 36415; 71045; 71275; 74176; 80053; 81003; 82803; 83605; 83690; 83735; 84484; 85025; 85379; 87040; 93005; 96361; 96365; 99285; A9270; J0696; J3490; J7030; U0002; 93010; 99284